=== PATIENT | male | born 1935 | race Caucasian/White ===

== ENCOUNTER 2022-03-19 10:09 | Emergency (ER) | payer MEDICARE ==
[~2022-03-19] VITALS: Ht 182.9 cm; Wt 68.0 kg
[2022-03-19 10:46] LABS: BASOPHILS ABSOLUTE AUTO 0.05 K/mm3 (0.00-0.23); BASOPHILS PERCENT AUTO 1 % (0-2); EOSINOPHILS ABSOLUTE AUTO 0.15 K/mm3 (0.00-0.68); EOSINOPHILS PERCENT AUTO 2 % (0-6); Hematocrit 45.7 % (37.0-53.0); Hemoglobin 14.4 g/dL (13.5-17.5); IMMATURE GRAN ABSOLUTE AUTO 0.02 K/mm3 (0.00-0.10); IMMATURE GRAN PERCENT AUTO 0 % (0-1); LYMPHOCYTES ABSOLUTE AUTO 1.76 K/mm3 (0.84-5.20); LYMPHOCYTES PERCENT AUTO 20 % (21-46); MONOCYTES ABSOLUTE AUTO 1.03 K/mm3 (0.16-1.47); MONOCYTES PERCENT AUTO 12 % (4-13); Mean Corpuscular HGB 27.1 pg (26.0-34.0); Mean Corpuscular HGB Conc 31.5 g/dL (31.5-36.5); Mean Corpuscular Volume 86 fL (80-100); NEUTROPHILS ABSOLUTE AUTO 5.84 K/mm3 (1.96-9.15); NEUTROPHILS PERCENT AUTO 66 % (41-73); Platelet Count 268 K/mm3 (150-400); RDW Coefficient Variation 13.8 % (11.7-14.2); RDW Standard Deviation 43.4 fL (35.1-46.3); Red Blood Cell Count 5.32 M/mm3 (4.30-5.90); White Blood Cell Count 8.85 K/mm3 (4.00-11.30)
[2022-03-19] MEDS ORDERED: DICL75ER PO (10:50)
[2022-03-19] MEDS ORDERED: SELEGILINE HCL (10:50)
[2022-03-19] MEDS ORDERED: ISOSORBIDE MONO30 MG PO (10:51)
[2022-03-19] MEDS ORDERED: GLYBURIDE-METF1 EAC1 PO (10:51)
[2022-03-19] MEDS ORDERED: CARBIDOPA-LEVO1 EA15 PO (10:51)
[2022-03-19] MEDS ORDERED: METOPROLOL SUCC25 MG PO (10:51)
[2022-03-19] MEDS ORDERED: ATORVASTATIN CA20 MG PO (10:52)
[2022-03-19 10:56] LABS: Alanine Aminotransfer (ALT/SGP 8 U/L (12-78); Albumin, Blood 3.9 g/dL (3.4-5.0); Albumin/Globulin Ratio 1.1 (0.8-1.8); Alk Phos 88 U/L (50-136); Anion Gap 7 mmol/L (6-16); Aspartate Aminotrans (AST/SGOT 20 U/L (12-37); Bilirubin, Total 0.6 mg/dL (0.1-1.0); Blood Urea Nitrogen 24 mg/dL (8-24); Bun/Creatinine Ratio 29.9 (12.0-20.0); CO2, Blood 32 mmol/L (21-32); Calcium, Blood 9.9 mg/dL (8.5-10.1); Chloride, Blood 97 mmol/L (98-108); Globulin, Blood 3.6 g/dL (2.2-4.0); Glomerular Filtration Rate >60 (60-); Glucose, Blood 219 mg/dL (70-99); Sodium, Blood 136 mmol/L (136-145); Total Protein, Blood 7.5 g/dL (6.4-8.2)
[2022-03-19 13:35] LABS: Source, Urine Clean Catch
[2022-03-19 13:52] LABS: Appearance, Urine Clear (Clear); Bilirubin, Urine Neg (Neg); Blood, Urine Neg (Neg); Color, Urine Yellow (P-Yellow); Glucose Qualitative, Urine Neg (Neg); Ketones, Urine 2+ (Neg); Leukocyte Esterase, Urine Neg (Neg); Nitrite, Urine Neg (Neg); Protein, Urine 1+ (Neg); Urobilinogen, Urine NORM (Normal); pH, Urine 6.5 (5.0-8.0)
[2022-03-19] MEDS ORDERED: Miralax17 GM PO (13:59)
[2022-03-19] MEDS ORDERED: ONDA4ODT SL (13:59)
== END 2022-03-19 14:13 | disposition home or self-care (01) ==
LOC: ER 10:09
PROVIDERS: Physician Assistant
DX: R11.2 Nausea with vomiting, unspecified (principal); R63.4 Abnormal weight loss; G20 Parkinson's disease; K59.00 Constipation, unspecified; Z90.49 Acquired absence of other specified parts of digestive tract; Z85.038 Personal history of other malignant neoplasm of large intestine; Z87.11 Personal history of peptic ulcer disease; Z79.899 Other long term (current) drug therapy
CPT/HCPCS: 36415; 71045; 74177; 80053; 83690; 84443; 84484; 85025; 93005; 93010; J7120; Q9967

== ENCOUNTER 2022-09-04 23:51 | Inpatient (IN) | payer MEDICARE ==
[~2022-09-04] VITALS: Ht 182.9 cm; Wt 67.9 kg
[~2022-09-04 23:51] MED LIST: ATORVASTATIN CA20 MG PO; CARBIDOPA-LEVO1 EA15 PO; CODACE30 PO; DICL75ER PO; GLYBURIDE-METF1 EAC1 PO; ISOSORBIDE MONO30 MG PO; METOPROLOL SUCC25 MG PO; Miralax17 GM PO; ONDA4ODT SL; SELEGILINE HCL
[2022-09-05 00:20] LABS: BASOPHILS ABSOLUTE AUTO 0.06 K/mm3 (0.00-0.23); BASOPHILS PERCENT AUTO 0 % (0-2); EOSINOPHILS ABSOLUTE AUTO 0.21 K/mm3 (0.00-0.68); EOSINOPHILS PERCENT AUTO 2 % (0-6); Hematocrit 40.3 % (37.0-53.0); Hemoglobin 13.1 g/dL (13.5-17.5); IMMATURE GRAN ABSOLUTE AUTO 0.05 K/mm3 (0.00-0.10); IMMATURE GRAN PERCENT AUTO 0 % (0-1); LYMPHOCYTES ABSOLUTE AUTO 1.29 K/mm3 (0.84-5.20); LYMPHOCYTES PERCENT AUTO 9 % (21-46); MONOCYTES ABSOLUTE AUTO 1.17 K/mm3 (0.16-1.47); MONOCYTES PERCENT AUTO 8 % (4-13); Mean Corpuscular HGB 28.1 pg (26.0-34.0); Mean Corpuscular HGB Conc 32.5 g/dL (31.5-36.5); Mean Corpuscular Volume 86 fL (80-100); Mean Platelet Volume 10.8 fL (9.1-12.4); NEUTROPHILS ABSOLUTE AUTO 11.29 K/mm3 (1.96-9.15); NEUTROPHILS PERCENT AUTO 80 % (41-73); Platelet Count 252 K/mm3 (150-400); RDW Coefficient Variation 13.9 % (11.7-14.2); RDW Standard Deviation 43.5 fL (35.1-46.3); Red Blood Cell Count 4.67 M/mm3 (4.30-5.90); White Blood Cell Count 14.07 K/mm3 (4.00-11.30)
[2022-09-05 00:39] LABS: Albumin, Blood 3.6 g/dL (3.4-5.0); Albumin/Globulin Ratio 1.1 (0.8-1.8); Bilirubin, Total 0.4 mg/dL (0.1-1.0); Bun/Creatinine Ratio 34.7 (12.0-20.0); Calcium, Blood 9.1 mg/dL (8.5-10.1); Creatinine, Blood 0.61 mg/dL (0.60-1.20); Globulin, Blood 3.2 g/dL (2.2-4.0); Potassium, Blood 4.2 mmol/L (3.5-5.5); Total Protein, Blood 6.8 g/dL (6.4-8.2)
[2022-09-05 02:12] LABS: Bilirubin, Urine Neg (Neg); Blood, Urine Neg (Neg); Glucose Qualitative, Urine Neg (Neg); Ketones, Urine 1+ (Neg); Leukocyte Esterase, Urine Neg (Neg); Nitrite, Urine Neg (Neg); Protein, Urine 1+ (Neg); Source, Urine Clean Catch; Urobilinogen, Urine NORM (Normal)
[2022-09-05 02:13] LABS: Appearance, Urine Clear (Clear); Color, Urine Yellow (P-Yellow)
--- NOTE | 2022-09-05 05:20 | NUR ---
0405: PT ARRIVED FROM ER. AOX4. NG TUBE ON L NOSTRILS. VSS. PT DENIES PAIN AT THIS TIME. PT ALSO DENIES N/V. PER ER NURSE, PT HAD 1600 MLS NG TUBE OUTPUT PRIOR TO TRANSFER. PT AMBULATES WITH FWW (BASELINE). TRANSFERS INDEPENDENTLY FROM GURNEY TO BED. NG TUBE ON LIS. DR. VILLELA CAME IN TO SEE PT IN ROOM. ATTENDS IN PLACE. USE URINAL. CALL LIGHT WITHIN REACH. WILL PROVIDE REPORT TO ONCOMING NURSE.
--- NOTE | 2022-09-05 18:37 | NUR ---
SHIFT SUMMARY PT A&OX4, VSS/RA, CBGS Q6 CNI. NPO, NGT LIS (100 MLS OUT THIS SHIFT). AMB W/FWW ([facility]ELINE FOR [facility]), AMB TO BRP AND IN HALLWAY, UP TO CHAIR, REPOSITIONS SELF WELL. URINAL AT BEDSIDE, PT CAN USE INDEPENDENTLY. IVF @ 100 MLS/HR. PAIN MANAGED WELL WITH DILAUDID 0.5 MG, X2. N&V-ZOFRAN GIVEN ONCE. WILL REPORT TO ONCOMING NOC RN.
[2022-09-06 04:55] LABS: BASOPHILS ABSOLUTE AUTO 0.04 K/mm3 (0.00-0.23); BASOPHILS PERCENT AUTO 0 % (0-2); EOSINOPHILS ABSOLUTE AUTO 0.16 K/mm3 (0.00-0.68); EOSINOPHILS PERCENT AUTO 2 % (0-6); Hematocrit 43.3 % (37.0-53.0); Hemoglobin 13.6 g/dL (13.5-17.5); IMMATURE GRAN ABSOLUTE AUTO 0.03 K/mm3 (0.00-0.10); IMMATURE GRAN PERCENT AUTO 0 % (0-1); LYMPHOCYTES ABSOLUTE AUTO 1.23 K/mm3 (0.84-5.20); LYMPHOCYTES PERCENT AUTO 12 % (21-46); MONOCYTES ABSOLUTE AUTO 1.22 K/mm3 (0.16-1.47); MONOCYTES PERCENT AUTO 12 % (4-13); Mean Corpuscular HGB 27.6 pg (26.0-34.0); Mean Corpuscular HGB Conc 31.4 g/dL (31.5-36.5); Mean Corpuscular Volume 88 fL (80-100); Mean Platelet Volume 10.5 fL (9.1-12.4); NEUTROPHILS ABSOLUTE AUTO 7.66 K/mm3 (1.96-9.15); NEUTROPHILS PERCENT AUTO 74 % (41-73); Platelet Count 240 K/mm3 (150-400); RDW Coefficient Variation 14.2 % (11.7-14.2); RDW Standard Deviation 45.6 fL (35.1-46.3); Red Blood Cell Count 4.93 M/mm3 (4.30-5.90); White Blood Cell Count 10.34 K/mm3 (4.00-11.30)
[2022-09-06 05:13] LABS: Bun/Creatinine Ratio 25.8 (12.0-20.0); Calcium, Blood 8.8 mg/dL (8.5-10.1); Creatinine, Blood 0.74 mg/dL (0.60-1.20); Potassium, Blood 4.1 mmol/L (3.5-5.5)
--- NOTE | 2022-09-06 06:40 | NUR ---
PT VSS T/O NIGHT. NGT PUT PUT APPX 200 ML BROWN DRNG. BT ACTIVE THIS AM, PT REP NO FLATUS YET, REP MORE PAINFUL R/T INC IN BOWEL ACTIVITY. PT DENIED N/V. PT VOIDING SMALL AMTS OF URINE. PT REMAINED NPO, IVF CONT PER ORDERS.
--- NOTE | 2022-09-06 08:39 | NUR ---
PATIENT TO IMAGING VIA W/C TO BEGIN SMALL BOWEL FOLLOW THROUGH. NG TUBE CLAMPED.
--- NOTE | 2022-09-06 09:12 | NUR ---
PATIENT RETURNED FROM IMAGING. NG TUBE REMAINS CLAMPED PER DR ORDERS.
--- NOTE | 2022-09-06 09:45 | NUR ---
PATIENT C/O INTERMITTENT BURNING/SHARP PAINS TO ABDOMEN, RATED 9/10. PATIENT DENIES N/V. MEDICATED PER EMAR. NOTIFIED MD OF NEW BURNING PAINS, NO NEW ORDERS.
--- NOTE | 2022-09-06 12:40 | NUR ---
PATIENT REPORTS SEVER NAUSEA, NO EMESIS AT THIS TIME. NG TUBE CONNECTED TO LIS PER DR RYDER ORDERS.
--- NOTE | 2022-09-06 17:54 | NUR ---
SHIFT SUMMARY PATIENT HAD SMALL BOWEL FOLLOW THROUGH STARTING THIS AM ABOUT 0800. NGTUBE WAS CLAMPED FOR PROCEDURE, PATIENT HAD SHARP BURNING PAIN INTERMITTENTLY AND THEN PATIENT BECAME VERY NAUSEATED ABOUT 1240, NG CONNECTED TO LIS AND VERY LARGE AMOUNT IMMEDIATELY CAME OUT, PATIENT FELT RELIEF QUICKLY FROM SUCTION. PATIENT FINISHED SMALL BOWEL FOLLOW THROUGH, CLAMPING NG EACH TIME PATIENT WENT FOR IMAGES. PATIENT REMAINS NPO, DENIES ANY FLATUS THIS SHIFT, NO BM, ALTHOUGH PATIENT REPORTS "STOMACH RUMBLING" OFTEN AND HYPERACTIVE BOWEL TONES AUSCULATED. PATIENT VOIDING W/O DIFFICULTY WITH URINAL. MEDICATED NEEDED PER EMAR. IV FLUIDS RUNNING. CALLS APPROPRIATLY, WILL REPORT TO ONCOMING RN.
--- NOTE | 2022-09-07 07:40 | NUR ---
PT VSS T/O NIGHT. NGT TO LIS, PUT OUT APPX 1000 ML LIGHT BROWN DRNG PT C/O BURNING ABD PAIN, DENIED N/V. PAIN MGD W/1MG IV DILAUDID. PT REP PASSING SMALL FLATUS X1. PT NPO, IVF CONT PER ORDERS. PLAN FOR FINAL SBFT IMAGE THIS AM.
--- NOTE | 2022-09-07 16:40 | NUR ---
SHIFT SUMMARY PATIENT MEDICATED X1 FOR PAIN. PATIENT DENIES NAUSEA AND SHORTNESS OF BREATH. PATIENT BT HYPOACTIVE. PATIENT NG TO LIS. PATIENT HAD 600ML OUTPUT THIS SHIFT. PATIENT REPORTS INTERMITTENT "SHOOTING" PAIN. PATIENT NPO. PATIENT TO POSSIBLY HAVE SURGERY TOMORROW MORNING, PER DR. TREVINO. PATIENT DAUGHTER VISITED TODAY. PATIENT IS A SBA. PATIENT IS PLEASANT AND COOPERATIVE WITH CARE.
--- NOTE | 2022-09-08 05:35 | NUR ---
PT VSS T/O NIGHT. PT CONT TO C/O CRAMPING ABD PAIN AND BURNING. ABDF REMAINS GUARDED, BT HYPO, PT REP NO FLATUS. PAIN MGD W/1 MG IV DILAUDID. NGT CONT TO LIS, HAD APPX 600ML BROWN DRNG. PT DID C/O NAUSEA X1, ZOFRAN GIVEN PER EMAR. PT REMAINS NPO, IVF CONT PER ORDERS. PLAN FOR SURGERY THIS AM.
[2022-09-08 05:47] LABS: BASOPHILS ABSOLUTE AUTO 0.03 K/mm3 (0.00-0.23); BASOPHILS PERCENT AUTO 1 % (0-2); EOSINOPHILS ABSOLUTE AUTO 0.12 K/mm3 (0.00-0.68); EOSINOPHILS PERCENT AUTO 2 % (0-6); Hematocrit 45.6 % (37.0-53.0); Hemoglobin 14.1 g/dL (13.5-17.5); IMMATURE GRAN ABSOLUTE AUTO 0.02 K/mm3 (0.00-0.10); IMMATURE GRAN PERCENT AUTO 0 % (0-1); LYMPHOCYTES ABSOLUTE AUTO 1.38 K/mm3 (0.84-5.20); LYMPHOCYTES PERCENT AUTO 21 % (21-46); MONOCYTES ABSOLUTE AUTO 1.05 K/mm3 (0.16-1.47); MONOCYTES PERCENT AUTO 16 % (4-13); Mean Corpuscular HGB 27.5 pg (26.0-34.0); Mean Corpuscular HGB Conc 30.9 g/dL (31.5-36.5); Mean Corpuscular Volume 89 fL (80-100); Mean Platelet Volume 10.8 fL (9.1-12.4); NEUTROPHILS ABSOLUTE AUTO 4.04 K/mm3 (1.96-9.15); NEUTROPHILS PERCENT AUTO 61 % (41-73); Platelet Count 269 K/mm3 (150-400); RDW Coefficient Variation 13.6 % (11.7-14.2); RDW Standard Deviation 44.8 fL (35.1-46.3); Red Blood Cell Count 5.13 M/mm3 (4.30-5.90); White Blood Cell Count 6.64 K/mm3 (4.00-11.30)
[2022-09-08 06:20] LABS: Albumin, Blood 3.1 g/dL (3.4-5.0); Albumin/Globulin Ratio 0.9 (0.8-1.8); Bilirubin, Total 0.8 mg/dL (0.1-1.0); Bun/Creatinine Ratio 42.9 (12.0-20.0); Calcium, Blood 9.2 mg/dL (8.5-10.1); Creatinine, Blood 0.61 mg/dL (0.60-1.20); Globulin, Blood 3.4 g/dL (2.2-4.0); Potassium, Blood 3.7 mmol/L (3.5-5.5); Total Protein, Blood 6.5 g/dL (6.4-8.2)
--- NOTE | 2022-09-08 06:38 | NUR ---
FAMILY IN ROOM FOR VISIT
--- NOTE | 2022-09-08 08:25 | NUR ---
Patient confirms NPO status and agrees with scheduled surgery. History, Chart, Medications and Allergies reviewed before start of procedure. Lungs clear T/O to Auscultation.
--- NOTE | 2022-09-08 08:27 | NUR ---
SURGERY PATIENT TAKEN TO SURGERY AT 0800. PATIENT IN GOWN, IV SALINE LOCKED, NG CLAMPED. FAMILY AT BEDSIDE, FOLLOWED PATIENT DOWN TO SURGERY. PATIENT TAKEN IN BED.
--- NOTE | 2022-09-08 09:39 | NUR ---
PATIENT TRANSFERED VIA BED TO DAY SURGERY AT 0807 FOR SURGERY. SURGERY POSTPONED BY DR TREVINO. PATIENT TRANSFERED BACK TO THEIR ROOM VIA BED AT 0938.
--- NOTE | 2022-09-08 10:15 | NUR ---
THE PATIENT WAS BROUGHT BACK TO DAYSURGERY FOR HIS PROCEDURE.
--- NOTE | 2022-09-08 11:26 | NUR ---
09/08/22 1126 Parris Johnson ATTEMPTED DIAGNOSTIC LAPAROSCOPY [id number] CASE WENT OPEN AT 1111 AND PROCEEDED
--- NOTE | 2022-09-08 18:21 | NUR ---
SHIFT SUMMARY PATIENT BACK FROM SURGERY AROUND 1730. PATIENT REPORTS PAIN, MEDICATED PER EMAR. PATIENT HAS CIRO DRAIN, EMPTIED AT 1800, 50ML OUTPUT. PATIENT HAS ILEANA DRESSING. DRESSING IS C/D/I. PATIENT VS WNL. PATIENT A&O X4. PATIENT VOMITTED IN ROOM, THICK BROWN EMESIS. NG ON LIS, OUTPUT IS BROWN. FAMILY AT BEDSIDE. PATIETN HAS AL[place], PATENT AND DRAINING TO GRAVITY. PATIENT IS PLEASANT AND COOPERATIVE WITH CARE.
--- NOTE | 2022-09-09 05:34 | NUR ---
SHIFT SUMMARY PT A&OX 3-4, PLEASANT AND COOPERATIVE. CAN BE CONFUSED AT TIMES, BUT EASY TO REORIENT. MEDICATED FOR PAIN TWICE WITH 1MG DILAUDID. MIDLINE ILEANA DRESSING HAD MINIMAL SHADOWING, GREEN LIGHT ON. ABD BINDER IN PLACE. CIRO DRAIN EMPTIED TWICE FOR A TOTAL OF 70ML. NG IN PLACE AND SET TO INTERMITTENT, THOUGH IT'S NOT DRAINING WELL. OUTPUT IS THICK/BROWN. ATTEMPTED TO IRRIGATE MULTIPLE TIMES TILL OUTPUT WAS THINNER CONSISTENCY, STILL HAVING FLOW ISSUES. WILL PASS THIS ON IN REPORT. ALCANTARA IN PLACE AND DRAINING TO GRAVITY. CALL LIGHT WITHIN REACH.
[2022-09-09 05:41] LABS: BASOPHILS ABSOLUTE AUTO 0.03 K/mm3 (0.00-0.23); BASOPHILS PERCENT AUTO 0 % (0-2); EOSINOPHILS PERCENT AUTO 0 % (0-6); Hematocrit 45.7 % (37.0-53.0); Hemoglobin 14.4 g/dL (13.5-17.5); IMMATURE GRAN ABSOLUTE AUTO 0.05 K/mm3 (0.00-0.10); IMMATURE GRAN PERCENT AUTO 1 % (0-1); LYMPHOCYTES ABSOLUTE AUTO 1.16 K/mm3 (0.84-5.20); LYMPHOCYTES PERCENT AUTO 11 % (21-46); MONOCYTES ABSOLUTE AUTO 1.69 K/mm3 (0.16-1.47); MONOCYTES PERCENT AUTO 16 % (4-13); Mean Corpuscular HGB 27.7 pg (26.0-34.0); Mean Corpuscular HGB Conc 31.5 g/dL (31.5-36.5); Mean Corpuscular Volume 88 fL (80-100); Mean Platelet Volume 10.6 fL (9.1-12.4); NEUTROPHILS PERCENT AUTO 73 % (41-73); Platelet Count 303 K/mm3 (150-400); RDW Coefficient Variation 13.9 % (11.7-14.2); RDW Standard Deviation 45.1 fL (35.1-46.3); White Blood Cell Count 10.83 K/mm3 (4.00-11.30)
[2022-09-09 06:20] LABS: Albumin, Blood 2.5 g/dL (3.4-5.0); Albumin/Globulin Ratio 0.8 (0.8-1.8); Bilirubin, Total 0.7 mg/dL (0.1-1.0); Bun/Creatinine Ratio 43.2 (12.0-20.0); Calcium, Blood 8.3 mg/dL (8.5-10.1); Creatinine, Blood 0.83 mg/dL (0.60-1.20); Potassium, Blood 3.8 mmol/L (3.5-5.5); Total Protein, Blood 5.5 g/dL (6.4-8.2)
--- NOTE | 2022-09-09 16:52 | NUR ---
SHIFT SUMMARY POD 1 EXP LAP W/ RAYMOND. MIDLINE ILEANA IN PLACE, LIGHT DRAINAGE NOTED CONSISTENTLY T/O SHIFT. MODERATE PAIN TO ABDOMEN, MEDICATED PER EMAR. PATIENT REMIANS NPO, NG TUBE IN PLACE TO LIS WITH MINIMAL OUTPUT THIS SHIFT. REPORTS NAUSEA INTERMITTENTLY, NO EMESIS. PATIENT WORKED WITH PT & OT TODAY AND DID FAIR, 1-2P TO CHAIR. DENIES FLATUS, NO BM. TPN STARTED TODAY. CALLS APPROPRIATELY, WILL REPORT TO ONCOMING RN.
[2022-09-10 05:01] LABS: BASOPHILS ABSOLUTE AUTO 0.04 K/mm3 (0.00-0.23); BASOPHILS PERCENT AUTO 0 % (0-2); EOSINOPHILS ABSOLUTE AUTO 0.14 K/mm3 (0.00-0.68); EOSINOPHILS PERCENT AUTO 1 % (0-6); Hematocrit 41.8 % (37.0-53.0); IMMATURE GRAN ABSOLUTE AUTO 0.05 K/mm3 (0.00-0.10); IMMATURE GRAN PERCENT AUTO 1 % (0-1); LYMPHOCYTES ABSOLUTE AUTO 1.52 K/mm3 (0.84-5.20); LYMPHOCYTES PERCENT AUTO 15 % (21-46); MONOCYTES ABSOLUTE AUTO 1.42 K/mm3 (0.16-1.47); MONOCYTES PERCENT AUTO 14 % (4-13); Mean Corpuscular HGB 27.6 pg (26.0-34.0); Mean Corpuscular HGB Conc 31.1 g/dL (31.5-36.5); Mean Corpuscular Volume 89 fL (80-100); Mean Platelet Volume 10.7 fL (9.1-12.4); NEUTROPHILS PERCENT AUTO 70 % (41-73); Platelet Count 269 K/mm3 (150-400); RDW Coefficient Variation 13.9 % (11.7-14.2); RDW Standard Deviation 44.7 fL (35.1-46.3); Red Blood Cell Count 4.71 M/mm3 (4.30-5.90); White Blood Cell Count 10.47 K/mm3 (4.00-11.30)
[2022-09-10 05:36] LABS: Alanine Aminotransfer (ALT/SGP 18 U/L (12-78); Albumin, Blood 2.3 g/dL (3.4-5.0); Albumin/Globulin Ratio 0.7 (0.8-1.8); Alk Phos 66 U/L (50-136); Anion Gap 5 mmol/L (6-16); Aspartate Aminotrans (AST/SGOT 16 U/L (12-37); Bilirubin, Total 0.4 mg/dL (0.1-1.0); Blood Urea Nitrogen 33 mg/dL (8-24); Bun/Creatinine Ratio 51.6 (12.0-20.0); CO2, Blood 32 mmol/L (21-32); Calcium, Blood 8.8 mg/dL (8.5-10.1); Chloride, Blood 107 mmol/L (98-108); Creatinine, Blood 0.64 mg/dL (0.60-1.20); Globulin, Blood 3.5 g/dL (2.2-4.0); Glomerular Filtration Rate 92 (60-); Glucose, Blood 307 mg/dL (70-99); Magnesium, Blood 2.2 mg/dL (1.6-2.4); Phosphorus, Blood 1.8 mg/dL (2.5-4.9); Potassium, Blood 3.5 mmol/L (3.5-5.5); Sodium, Blood 144 mmol/L (136-145); Total Protein, Blood 5.8 g/dL (6.4-8.2); Triglycerides 156 mg/dL (30-160)
--- NOTE | 2022-09-10 05:37 | NUR ---
SHIFT SUMMARY PT ALERT BUT CONFUSED AT TIMES. MEDICATING FOR PAIN PER EMAR. ILEANA DRESSING HAD LIGHT DRAINAGE, GREEN LIGHT ON. ABD BINDER IN PLACE. PT STILL NPO. NG TUBE IN PLACE AND SECURED. 1-2 ASSIST TO CHAIR. DENIES PASSING FLATUS, NO BM. ALCANTARA IN PLACE AND DRAINING TO GRAVITY, YELLOW/LITTLE DARK. CIRO DRAIN EMPTIED ONCE, 20ML SEROSANGUINEOUS. CALL LIGHT WITHIN REACH.
--- NOTE | 2022-09-10 10:59 | NUR ---
IMAGING IN ROOM AT ABOUT 1035, ABD XRAY COMPLETE
--- NOTE | 2022-09-10 17:53 | NUR ---
SUMMARY: PT IS POD2 EX LAP WITH LYSIS OF ADHESIONS. A/O, FRAIL, VSS. ML ILEANA DRESSING HAS SOME DRY BLOOD SPOTS, OTHERWISE WNL. CIRO DRAIN NOT EMPITIED TODAY, SMALL AMT SS FLUID IN COMPRESSED BULB. ALCANTARA DC'D TONIGHT, AWAITING VOID. PT DENIES PASSING GAS, BOWEL TONES ARE ABSENT TO HYPOACTIVE. PT HAS HAD INTERMITTANT NAUSEA TODAY AND 220ML OF GREEN OUTPUT FROM NGT. NGT APPEARS TO BE SUCTIONING WELL. PT WORKED WITH THERAPY AND SAT UP TO CHAIR X3, 1 ASSIST WITH FWW. PT ABLE TO MAKE NEEDS KNOWN, PAIN SEEMS TO BE WELL MANAGE WITH 1MG IV DILAUDID. PT FAMILY AT BEDSIDE THE MAJORITY OF TODAY. NO ACUTE SAFETY CONCERNS.
--- NOTE | 2022-09-10 19:58 | NUR ---
NG TUBE PULLED BACK 7CM OF NG TUBE AND RESECURED, PER DR. TREVINO'S ORDERS. FLUSHED LINE WITH 40ML, AND RETURNED TO SUCTION.
--- NOTE | 2022-09-11 05:56 | NUR ---
SHIFT SUMMARY PT A&OX 3-4, PLEASANT AND COOPERATIVE WITH CARE. BED ALARM ON. MEDICATING FOR PAIN PER EMAR. NPO STATUS STILL. NG TUBE IN PLACE AND SECURED, 650ML DURING SHIFT GREEN/CLEAR IN COLOR. MIDLINE ILEANA WITH JUST A FEW SPOTS OF DRIED BLOOD, GREEN LIGHT ON. ABD BINDER IN PLACE. LLQ CIRO DRAIN EMPTIED ONCE, 30ML SEROSANGUINEOUS. 1 ASSIST WITH FWW/GB. VOIDING USING BEDSIDE URINAL WITH ASSISTANCE, NO BM YET. CALLS APPROPRIATELY, CALL LIGHT WITHIN REACH.
[2022-09-11 06:12] LABS: BASOPHILS ABSOLUTE AUTO 0.04 K/mm3 (0.00-0.23); BASOPHILS PERCENT AUTO 0 % (0-2); EOSINOPHILS ABSOLUTE AUTO 0.32 K/mm3 (0.00-0.68); EOSINOPHILS PERCENT AUTO 3 % (0-6); Hematocrit 39.5 % (37.0-53.0); Hemoglobin 12.4 g/dL (13.5-17.5); IMMATURE GRAN ABSOLUTE AUTO 0.06 K/mm3 (0.00-0.10); IMMATURE GRAN PERCENT AUTO 1 % (0-1); LYMPHOCYTES ABSOLUTE AUTO 1.38 K/mm3 (0.84-5.20); LYMPHOCYTES PERCENT AUTO 15 % (21-46); MONOCYTES ABSOLUTE AUTO 0.93 K/mm3 (0.16-1.47); MONOCYTES PERCENT AUTO 10 % (4-13); Mean Corpuscular HGB 27.6 pg (26.0-34.0); Mean Corpuscular HGB Conc 31.4 g/dL (31.5-36.5); Mean Corpuscular Volume 88 fL (80-100); Mean Platelet Volume 10.7 fL (9.1-12.4); NEUTROPHILS ABSOLUTE AUTO 6.71 K/mm3 (1.96-9.15); NEUTROPHILS PERCENT AUTO 71 % (41-73); Platelet Count 241 K/mm3 (150-400); RDW Coefficient Variation 13.6 % (11.7-14.2); RDW Standard Deviation 43.9 fL (35.1-46.3); Red Blood Cell Count 4.49 M/mm3 (4.30-5.90); White Blood Cell Count 9.44 K/mm3 (4.00-11.30)
[2022-09-11 06:29] LABS: Bun/Creatinine Ratio 46.1 (12.0-20.0); Calcium, Blood 8.7 mg/dL (8.5-10.1); Creatinine, Blood 0.59 mg/dL (0.60-1.20); Magnesium, Blood 2.2 mg/dL (1.6-2.4); Phosphorus, Blood 2.7 mg/dL (2.5-4.9); Potassium, Blood 3.6 mmol/L (3.5-5.5)
--- NOTE | 2022-09-11 12:09 | NUR ---
RN NOTE MR THOMPSON IS ALERT AND ORIENTATED TO ALL QUESTIONS THIS MORNING. HIS SON VALENTINE SAID THAT HE IS MORE CLEAR AND ORIENTATED TODAY THAN YESTERDAY. HE SAT OUT IN THE CHAIR THIS MORNING WITH PT, TRANSFERED BACK TO BED WITH 1 NURSE, HE DID WELL WITH ASSISTANCE. HE HAD DIFFICULTY WITH IS, WORKING BETTER WITH FLUTTER VALVE WITH REMINDERS TO USE IT. PPN CONTINUES TO POWERGLIDE. BLOOD SUGARS HAVE BEEN ELEVATED. PT ON LOW SLIDING SCALE. VOICE MESSAGE LEFT FOR DR RUSH REGARDING BLOOD SUGARS. ABDOMINAL DRESSING WITH SPOTS OF OLD DRY BLOOD ONLY, NO FRESH DRAINAGE. CIRO DRAIN WITH S/S DRAINAGE, ILEANA WITH GREEN LIGHT. BINDER OVER ABDOMINAL DRESSING. PAIN MEDS EFFECTIVE THIS AM. HAS SOME INTERMITTANT NAUSEA WITH PAIN MEDS, NOT SUSTAINED. NG TUBE TO LIWS, PT NPO WITH ICE CHIPS. TOLERATING WELL. BOWEL SOUNDS VERY HYPOOACTIVE. PT DENIED FLATUS THIS AM. BED LOW, CALL LIGHT IN REACH.
--- NOTE | 2022-09-11 16:16 | NUR ---
SHIFT SUMMARY SEE 1209 RN NOTE. MR HUERTA AMBULATED IN TO THE BATHROOM WITH 1-2 PERSON ASSIST, WALKER AND GAIT BELT. SAT OUT IN THE CHAIR TWICE TODAY, NOW BACK IN BED. TURNED OFF OF HIS SACRUM, AREA RED WITH SMALL BREAKDOWN, MEPILEX CHANGED. DISCUSSED IMPORTANCE OF TURNS WITH PT AND HIS SON VALENTINE. GLARGINE GIVEN, NEXT ACCUCHECK AT 1800HRS. GIVEN DILAUDID 1MG IV FOR PAIN CONTROL THIS AFTERNOON, MR HUERTA LOOKS LIKE HE IS RESTING COMFORTABLY NOW. BED LOW, CALL LIGHT IN REACH, BED ALARM ON.
--- NOTE | 2022-09-12 04:21 | NUR ---
POD4 FOR AN EX LAP. MIDLINE ILEANA IS COMPRESSED, MILD SS DRAINAGE NOTED ON THE DRESSING. CIRO DRAIN REMAINS PATENT, DRAINING SS FLUID. DRESSING IS C/D/I. ABD BINDER IS IN PLACE. PT HAS BEEN NPO T/O THE NIGHT, NG TUBE IN PLACE. DRAINING THICK BILLIOUS FLUID. PTS PAIN HAS BEEN CONTROLLED WITH TORADOL AND DILAUDUD T/O THE NIGHT. PT VOIDING WITH C/O URGENCY. DENIES PASSING FLATTUS, NO BM'S. PT TRANSFERRED TO CHAIR WITH 1P AND FWW, WEAKNESS NOTED. PT HAS BEEN A/OX3-4 T/O THE NIGHT. PLAN FOR PT KEEP NG TUBE UNTIL BOWEL FUNCTION RETURNS, AWAITING FURTHER ORDERS. THE PATIENT IS CURRENTLY RESTING IN THE RECLINER IN NO DISTRESS. CALL LIGHT IN REACH
[2022-09-12 05:53] LABS: Bun/Creatinine Ratio 53.6 (12.0-20.0); Calcium, Blood 8.9 mg/dL (8.5-10.1); Creatinine, Blood 0.69 mg/dL (0.60-1.20); Magnesium, Blood 1.9 mg/dL (1.6-2.4); Phosphorus, Blood 4.7 mg/dL (2.5-4.9); Potassium, Blood 3.7 mmol/L (3.5-5.5)
--- NOTE | 2022-09-12 18:57 | NUR ---
SHIFT SUMMARY PT AxOx4. PLEASANT AND COOPERATIVE WITH CARE. PT IS POST OP DAY 4 FROM EXPLOR LAP AND ABDOMINAL ADHESION RELEASE. PT IS NPO WITH NG TUBE IN PLACE ON LOW INT SUCTION FOR SBO. PT REPORTED WAVES OF PAIN T/O THIS SHIFT. MEDICATED PER EMAR FOR PAIN. PT WALKED THE HALLS x2 PLUS WALKED TO BATHROOM x2 THIS SHIFT. PT REPORT FLATUS, BUT DID NOT HAVE A BM. PT HAD FAMILY IN ROOM THIS SHIFT, UPDATED ON PLAN OF CARE. PT HAS Q6 BG ORDERS. INSULIN ADMINISTERED PER SS ORDERS. NG OUTPUT TOTALS 150ML AND CIRO BULB OUTPUT TOTALS 80ML THIS SHIFT. PT IS CURRENTLY RESTING IN BED WITH CALL LIGHT IN REACH. VITALS REVIEWED. PT DENIES ANY FURTHER NEEDS AT THIS TIME.
--- NOTE | 2022-09-13 04:08 | NUR ---
POD 5 FOR AN EXPLAORATORY LAP. MIDLINE ILEANA REMAINS C/D/I, COMPRESSED. MINIMAL SHADOWING NOTED. CIRO DRAIN REMAINS PATENT, DRAINING SS FLUID. COMPRESSED. THE PATIENT SLEPT ON AND OFF T/O THE NIGHT. AMBULATED TO THE BATHROOM MULTIPLE TIMES TO ATTEMPT TO HAVE A BM. NO BM PASSED BUT PASSED FLATTUS T/O THE NIGHT. URINE OUTPUT CONTINUES TO BE LOW, ENCOURAGED TO AMBULATE. PLAN TO BLADDER SCAN NEEDED. THE PATIENT AMBULATED IN THE RIOS THIS AM WITHT THE CLINICAL SOCIAL WORKER, TOLLERATED THIS WELL. PAIN HAS BEEN MANAGED WITH TORADOL AND DILAUDID. NAUSEA HAS BEEN MANAGED WITH ZOFRAN. THE PATIENT HAS NOT HAS EMESIS. NG TUBE REMAINS IN PLACE, DRAINING DARK BILLIOUS FLUID. PT HAS REMAIED NPO T/O THE NIGHT EXCEPT FOR MINIMAL ICE CHIPS. PLAN OF CARE IS TO AWAIT BOWEL FUNCTIO TO RETURN AND POSSIBLY GO TO SNF. THE PATIENT IS CURRENTLY RESTING IN BED, IN NO DISTRESS. CALL LIGHT IN REACH
--- NOTE | 2022-09-13 06:30 | NUR ---
BOWEL FUNCTION POD 5 FOR A EX LAP, THE PT PASSED HIS FIRST STOOL THIS AM. IT WAS SMALL, SOFT AND LOOSE. GREEN COLOR. THE PT EXPERIENED RELIEF AFTER PASSING THIS.
[2022-09-13 10:20] LABS: BASOPHILS ABSOLUTE AUTO 0.07 K/mm3 (0.00-0.23); BASOPHILS PERCENT AUTO 1 % (0-2); EOSINOPHILS ABSOLUTE AUTO 0.41 K/mm3 (0.00-0.68); EOSINOPHILS PERCENT AUTO 5 % (0-6); Hematocrit 38.5 % (37.0-53.0); Hemoglobin 12.1 g/dL (13.5-17.5); IMMATURE GRAN PERCENT AUTO 1 % (0-1); LYMPHOCYTES ABSOLUTE AUTO 1.12 K/mm3 (0.84-5.20); LYMPHOCYTES PERCENT AUTO 12 % (21-46); MONOCYTES ABSOLUTE AUTO 0.92 K/mm3 (0.16-1.47); MONOCYTES PERCENT AUTO 10 % (4-13); Mean Corpuscular HGB 27.5 pg (26.0-34.0); Mean Corpuscular HGB Conc 31.4 g/dL (31.5-36.5); Mean Corpuscular Volume 88 fL (80-100); Mean Platelet Volume 11.1 fL (9.1-12.4); NEUTROPHILS ABSOLUTE AUTO 6.57 K/mm3 (1.96-9.15); NEUTROPHILS PERCENT AUTO 71 % (41-73); Platelet Count 253 K/mm3 (150-400); RDW Coefficient Variation 13.5 % (11.7-14.2); RDW Standard Deviation 43.3 fL (35.1-46.3); White Blood Cell Count 9.19 K/mm3 (4.00-11.30)
[2022-09-13 10:35] LABS: Albumin, Blood 2.1 g/dL (3.4-5.0); Albumin/Globulin Ratio 0.6 (0.8-1.8); Bilirubin, Total 0.5 mg/dL (0.1-1.0); Bun/Creatinine Ratio 52.8 (12.0-20.0); Calcium, Blood 8.4 mg/dL (8.5-10.1); Creatinine, Blood 0.76 mg/dL (0.60-1.20); Globulin, Blood 3.3 g/dL (2.2-4.0); Potassium, Blood 3.9 mmol/L (3.5-5.5); Total Protein, Blood 5.4 g/dL (6.4-8.2)
--- NOTE | 2022-09-13 18:33 | NUR ---
SHIFT SUMMARY PATIENT ALERT AND ORIENTED THROUGHOUT SHIFT. [place]. NG TUBE DC'D AT BEGINNING OF SHIFT. PATIENT TOLERATED WELL. 1-2 EPISODES OF NAUSEA THAT PASSED QUICKLY, NO VOMITING. BOWEL TONES PRESENT. MULTIPLE BOWEL MOVEMENTS. CIRO DRAIN TO LLQ DC'D. MIDLINE ILEANA C/D/I. NPO WITH SIPS AND CHIPS. PAIN CONTROLLED WITH PRN IV PAIN MEDS. SBA WITH FWW UP TO AMBULATE IN HALLS AND TO BATHROOM. MEPILEX TO COCCYX CHANGED THIS SHIFT. PLAN TO ADVANCE DIET TOMORROW IF NO NAUSEA AND NO VOMITING CONTINUES. PPN RUNNING THROUGH [place]. CHEM BG Q6 WITH LSS HUMALOG. SON ATTENTIVE AT BEDSIDE THROUGHOUT SHIFT.
--- NOTE | 2022-09-14 04:54 | NUR ---
SHIFT SUMMARY PATIENT IS POD 6 EX LAP TO OPEN, LYSIS OF ADHESIONS. PICCO DRAIN AND DRESSING IN PLACE, SCANT AMOUNT OF SHADOWING ON DRESSING. EX LAP SITES WITH GAUZE AND TEGADERM C/D/I. EMILIE DRAIN SITE WITH GAUZE AND TEGADERM C/D/I. PT MEDICATED FOR PAIN X2 THIS SHIFT, WITH GOOD RELIEF. MEDICATED FOR NAUSEA THIS AM, STATES "I HAVE HEART BURN AND USUALLY TAKE PEPCID". NO VOMIT NOTED. PATIENT HAVING STOOLS THIS SHIFT, AND VOIDING WELL.IV ON R FOREARM PATENT, POWERGLIDE INFUSING PPN. REPOSITIONS THROUGHOUT SHIFT. VSS. CALL LIGHT IN REACH ABLE TO USE AND LET NEEDS KNOWN.
[2022-09-14 05:58] LABS: BASOPHILS ABSOLUTE AUTO 0.06 K/mm3 (0.00-0.23); BASOPHILS PERCENT AUTO 1 % (0-2); EOSINOPHILS ABSOLUTE AUTO 0.39 K/mm3 (0.00-0.68); EOSINOPHILS PERCENT AUTO 4 % (0-6); Hematocrit 34.4 % (37.0-53.0); Hemoglobin 11.2 g/dL (13.5-17.5); IMMATURE GRAN ABSOLUTE AUTO 0.19 K/mm3 (0.00-0.10); IMMATURE GRAN PERCENT AUTO 2 % (0-1); LYMPHOCYTES ABSOLUTE AUTO 1.61 K/mm3 (0.84-5.20); LYMPHOCYTES PERCENT AUTO 17 % (21-46); MONOCYTES PERCENT AUTO 9 % (4-13); Mean Corpuscular HGB 28.1 pg (26.0-34.0); Mean Corpuscular HGB Conc 32.6 g/dL (31.5-36.5); Mean Corpuscular Volume 86 fL (80-100); Mean Platelet Volume 10.5 fL (9.1-12.4); NEUTROPHILS ABSOLUTE AUTO 6.53 K/mm3 (1.96-9.15); NEUTROPHILS PERCENT AUTO 68 % (41-73); Platelet Count 243 K/mm3 (150-400); RDW Coefficient Variation 13.5 % (11.7-14.2); RDW Standard Deviation 42.2 fL (35.1-46.3); Red Blood Cell Count 3.99 M/mm3 (4.30-5.90); White Blood Cell Count 9.68 K/mm3 (4.00-11.30)
[2022-09-14 06:17] LABS: Bun/Creatinine Ratio 50.3 (12.0-20.0); Calcium, Blood 8.3 mg/dL (8.5-10.1); Creatinine, Blood 0.7 mg/dL (0.60-1.20); Potassium, Blood 3.8 mmol/L (3.5-5.5)
--- NOTE | 2022-09-14 08:55 | NUR ---
OT WORKING W/PT.
--- NOTE | 2022-09-14 15:02 | NUR ---
dr mayo in to see pt.
[2022-09-14] MEDS ORDERED: ACET325 PO (15:12)
[2022-09-14] MEDS ORDERED: CODACE30 PO (15:13)
[2022-09-14] MEDS ORDERED: ALUM-MAG HYDRO360 M1 PO (15:14)
[2022-09-14] MEDS ORDERED: NITR.4SL SL (15:22)
[2022-09-14] MEDS ORDERED: PANT40 PO (15:23)
[2022-09-14] MEDS ORDERED: PRESERVISION A1 EAC1 PO (15:25)
[2022-09-14] MEDS ORDERED: SENN187 PO (15:26)
[2022-09-14] MEDS ORDERED: TAMS.4ER PO (15:27)
[2022-09-14] MEDS ORDERED: LOPE2C PO (15:30)
--- NOTE | 2022-09-14 17:23 | NUR ---
SUMMARY NO ACUTE CHANGES T/O SHIFT. PT HAD TWO FORMED BMS TODAY. ADVANCING TO FULL LIQUIDS FOR DINNER PER ORDERS. PT WORKED WITH THERAPY, WALKED IN RIOS AND SAT UP IN RECLINER. PT STARTED ON PO PAIN MEDS. ADMINISTERED 1 TAB NORCO PER ORDERS BUT PT DID NOT RECEIVE ADEQUATE RELIEF. ADMINISTERED 2ND TAB AND PT REPORTED PAIN TOLERABLE. RESTING IN BED AT THIS TIME. CALL LIGHT IN REACH.
--- NOTE | 2022-09-15 02:30 | NUR ---
PATIENT REPORTED NAUSEA AND VOMITING AT 0045, ABOUT 50 ML OF YELLOW EMESIS NOTED. HOSPITALIST CALLED AND ORDER FOR PHENERGAN IV GIVEN. PATIENT IS NOW RESTING COMFORTABLE 02 SATS ABOVE 94% 1L NC PLACED FOR COMFORT WHILE ASLEEP. CONTINUE TO MONITOR FOR CHANGES. BED ALARM ON.
--- NOTE | 2022-09-15 04:40 | NUR ---
SHIFT SUMMARY PATIENT AOX4 AT START OF SHIFT. STARTED FULL LIQUID DIET THIS EVENING, TOLERATED SMALL AMOUNTS. MEDICATED FOR PAIN WITH PO NORCO, PATIENT BECAME NAUSEATED ZOFRAN WAS GIVEN WITH NO RESULTS. ORDER FOR PHENERGAN IV OBTAINED. NAUSEA SUBSIDED HOWEVER PATIENT BECAME MILDLY CONFUSED SETTING OFF BED ALARM SEVERAL TIMES THROUGHOUT THE SHIFT. REDIRECTED WELL, REORIENTED AND CONFIRMED WITH US HE HAD SOME CONFUSION. PATIENT URINATING SEVERAL TIMES THROUGHOUT SHIFT, NO BMS THIS SHIFT. REPOSITIONED AND BEDBATH DONE. CALL LIGHT IS IN REACH. VSS. WILL REPORT TO DAY RN.
[2022-09-15 15:39] LABS: Source, Urine Clean Catch
[2022-09-15 15:48] LABS: Appearance, Urine Clear (Clear); Bilirubin, Urine Neg (Neg); Blood, Urine Neg (Neg); Color, Urine Yellow (P-Yellow); Glucose Qualitative, Urine Neg (Neg); Ketones, Urine Neg (Neg); Leukocyte Esterase, Urine Neg (Neg); Nitrite, Urine Neg (Neg); Protein, Urine Neg (Neg); Urobilinogen, Urine NORM (Normal)
[2022-09-15 16:04] LABS: BASOPHILS ABSOLUTE AUTO 0.11 K/mm3 (0.00-0.23); BASOPHILS PERCENT AUTO 1 % (0-2); EOSINOPHILS ABSOLUTE AUTO 0.27 K/mm3 (0.00-0.68); EOSINOPHILS PERCENT AUTO 2 % (0-6); Hematocrit 38.8 % (37.0-53.0); Hemoglobin 12.5 g/dL (13.5-17.5); IMMATURE GRAN ABSOLUTE AUTO 0.21 K/mm3 (0.00-0.10); IMMATURE GRAN PERCENT AUTO 2 % (0-1); LYMPHOCYTES ABSOLUTE AUTO 1.34 K/mm3 (0.84-5.20); LYMPHOCYTES PERCENT AUTO 12 % (21-46); MONOCYTES ABSOLUTE AUTO 1.04 K/mm3 (0.16-1.47); MONOCYTES PERCENT AUTO 9 % (4-13); Mean Corpuscular HGB 28.2 pg (26.0-34.0); Mean Corpuscular HGB Conc 32.2 g/dL (31.5-36.5); Mean Corpuscular Volume 87 fL (80-100); NEUTROPHILS ABSOLUTE AUTO 8.49 K/mm3 (1.96-9.15); NEUTROPHILS PERCENT AUTO 74 % (41-73); Platelet Count 256 K/mm3 (150-400); RDW Coefficient Variation 13.7 % (11.7-14.2); RDW Standard Deviation 43.6 fL (35.1-46.3); Red Blood Cell Count 4.44 M/mm3 (4.30-5.90); White Blood Cell Count 11.46 K/mm3 (4.00-11.30)
--- NOTE | 2022-09-15 17:05 | NUR ---
ILEANA DRESSING REMOVED PER DR RYDER ORDERS. MEDIPORE DRESSING PALCED. X3 LAP SITES/DRAIN SITE DRESSINGS CHANGED.
--- NOTE | 2022-09-15 18:04 | NUR ---
SHIFT SUMMARY POD 7 EXP LAP W/ RAYMOND. MIDLINE INCISION W/ MEDIPORE DRESSING, C/D/I. X3 LAP/DRAIN SITE TO LEFT SIDE OF ABDOMEN, C/D/I. MINIMAL PAIN THROUGHOUT SHIFT, MEDICATED PER EMAR. NOT TOLERATING PO INTAKE VERY WELL EXCEPT ICE CHIPS AND SIPS OF WATER. PATIENT HAD COPIUS AMOUNTS OF EMESIS THIS AM. MILD NAUSEA SINCE, MEDICATED X1. AMBULATING TO BATHROOM WELL WITH 1P ASSIST. USES CALL LIGHT BUT DOES NOT WAIT FOR STAFF AFTER USING, BED ALARM IN PLACE. WILL REPORT TO ONCOMING RN.
[2022-09-15 18:11] LABS: Albumin, Blood 2.2 g/dL (3.4-5.0); Albumin/Globulin Ratio 0.6 (0.8-1.8); Bilirubin, Total 0.3 mg/dL (0.1-1.0); Bun/Creatinine Ratio 41.5 (12.0-20.0); Calcium, Blood 8.6 mg/dL (8.5-10.1); Creatinine, Blood 0.63 mg/dL (0.60-1.20); Globulin, Blood 3.4 g/dL (2.2-4.0); Potassium, Blood 4.4 mmol/L (3.5-5.5); Total Protein, Blood 5.6 g/dL (6.4-8.2)
--- NOTE | 2022-09-16 04:16 | NUR ---
POD8 FOR A EX LAP WITH LYSIS OF ADHESIONS. MIDLINE INCISION DRESSING IS C/D/I, LAP SITES AND DRAIN SITES ARE C/D/I. VSS. PT REMAINED NPO T/O THE NIGHT DUE TO N/V. THE PT HAD MULTIPLE EPISODES OF SPITTING UP BILLIOUS FLUID. TREATED NAUSEA WITH ZOFRAN, THIS APPEARED TO HELP. THE PT DENIES PASSING FLATTUS OR STOOL TONIGHT. MEDICATED FOR PAIN WITH IV DILAUDID THE PT COULD NOT TOLLERATE PO INTAKE. THE PATIENT SLEPT ON AND OFF T/O THE NIGHT. NOTED THAT THE PTS EMESIS AND BREATH SMELLS FOUL AND STOOL LIKE. NO ACUTE EVENTS T/O THE NIGHT. PLAN OF CARE IS TO AWAIT PT TO TOLLERATE PO INTAKE. THE PATIENT IS CURRENTLY RESTING IN BED, IN NO DISTRESS, CALL LIGHT IN REACH
[2022-09-16 04:58] LABS: BASOPHILS ABSOLUTE AUTO 0.05 K/mm3 (0.00-0.23); BASOPHILS PERCENT AUTO 0 % (0-2); EOSINOPHILS ABSOLUTE AUTO 0.26 K/mm3 (0.00-0.68); EOSINOPHILS PERCENT AUTO 2 % (0-6); Hematocrit 35.9 % (37.0-53.0); Hemoglobin 11.7 g/dL (13.5-17.5); IMMATURE GRAN ABSOLUTE AUTO 0.22 K/mm3 (0.00-0.10); IMMATURE GRAN PERCENT AUTO 2 % (0-1); LYMPHOCYTES ABSOLUTE AUTO 1.26 K/mm3 (0.84-5.20); LYMPHOCYTES PERCENT AUTO 11 % (21-46); MONOCYTES ABSOLUTE AUTO 1.12 K/mm3 (0.16-1.47); MONOCYTES PERCENT AUTO 10 % (4-13); Mean Corpuscular HGB Conc 32.6 g/dL (31.5-36.5); Mean Corpuscular Volume 86 fL (80-100); Mean Platelet Volume 10.5 fL (9.1-12.4); NEUTROPHILS ABSOLUTE AUTO 8.31 K/mm3 (1.96-9.15); NEUTROPHILS PERCENT AUTO 74 % (41-73); Platelet Count 260 K/mm3 (150-400); RDW Coefficient Variation 13.6 % (11.7-14.2); RDW Standard Deviation 42.8 fL (35.1-46.3); Red Blood Cell Count 4.18 M/mm3 (4.30-5.90); White Blood Cell Count 11.22 K/mm3 (4.00-11.30)
[2022-09-16 05:15] LABS: Bun/Creatinine Ratio 34.4 (12.0-20.0); Calcium, Blood 8.7 mg/dL (8.5-10.1); Creatinine, Blood 0.67 mg/dL (0.60-1.20); Magnesium, Blood 1.9 mg/dL (1.6-2.4); Phosphorus, Blood 3.7 mg/dL (2.5-4.9); Potassium, Blood 4.5 mmol/L (3.5-5.5)
--- NOTE | 2022-09-16 12:32 | NUR ---
PATIENT GAVE VERBAL PERMISSION FOR JANNETH VILLASEÑOR TO BE INVOLVED IN CARE
--- NOTE | 2022-09-16 12:36 | NUR ---
POD 8 EXP LAP W/ RAYMOND. MODERATE PAIN & BAUSEA THROUGHOUT MORNING. MEDICATIONS PER EMAR. 1P ASSIT TO AMBULATE AND TO BATHROOM. NPO PER MD ORDERS. BED ALARM ON. REPORT GIVEN TO ION ABDULLAHI.
--- NOTE | 2022-09-16 14:11 | NUR ---
SHOWER OFFERED PATIENT OFFERED SHOWER WAS AGREEABLE AT FIRST, PREPPED EQUIPMENT NEEDED, PATIENT THEN CHANGED MIND AND STATED HE DIDNT WANT ANYTHING TO DO WITH US AND REFUSED SHOWER. FOLLOWED UP WITH RN.
--- NOTE | 2022-09-16 17:36 | NUR ---
NG TUBE PLACED PLACED NG TUBE, VERIFIED WITH XRAY ON PLACEMENT, PATIENT TOLERATED WELL
--- NOTE | 2022-09-16 17:58 | NUR ---
SHIFT SUMMARY TOOK OVER CARE OF PT AT APPROXIMATELY 1245 AFTER GETTING REPORT FROM PRIOR RN. PT SITTING IN HIS CHAIR WHEN FIRST OBSERVED, DID NOT APPEAR TO BE IN ANY DISTRESS AT THE TIME BUT DID REPORT FEELING SOME NAUSEA BUT DIDN'T WANT ANY MEDICATIONS FOR IT. PPN RUNNING IN IV PUMP ORDERED RATE, INTRODUCED MYSELF AND DISCUSSED THE PLAN FOR THE DAY WITH THE PT AND HIS SON. PT LATER VOMITTED PER SON REPORT AND ASKED FOR SOMETHING FOR IT AND PAIN WHICH WAS GIVEN, PT VOMITTED WITHIN 1 MINUTE OF GETTING ZOFRAN AND HIS SINEMET CHARTED. NG TUBE DISCUSSED WITH PT AND HIS SON WHICH WAS LATER PLACED AFTER ORDERED BY STUDENT RN UNDER DIRECT OBSERVATION BY THIS RN AND THEIR CLINICAL INSTRUCTOR WHIH WAS TOLERATED WELL. PT ABD DISTENDED AND FIRM AT TIME OF NG PLACEMENT, AFTER XR VERIFICATION LIS ATTACHED AND GOT 1000ML OUT IMMEDIATELY WITH PT REPORTING FEELING "A LITTLE BETTER". WILL CTM. CALL LIGHT IN REACH, WILL REPORT TO ONCOMING NOC RN.
--- NOTE | 2022-09-17 03:47 | NUR ---
POD9 FOR A EX LAP. MIDLINE DRESSING AND LAP SITES ARE C/D/I. VSS. THE PT DID NOT REQUIRE ANY MEDICATION FOR N/V, OR PAIN TONIGHT. NG TUBE REMAINS PATENT, YELLOW THIN BILLIOUS FLUID OUTPUT. REINFORCED NASAL TAPE ON THE NG TUBE. THE PATIENT STATED HE PASSED MINIMAL FLATTUS TONIGHT. MULTIPLE INCONTINENT VOIDS NOTED TONIGHT. LINEN FABIE REQUIRED. PT EDUCATED ON THE IMPORTANCE OF LINE MAINTENENCE AND BEING CAREFUL WITH THE NG AND IV LINE WHEN MOVING OR AMBULATING, THE PT GOT OOB MULTIPLE TIMES WITHOTU CALLING AND HAD THE LINES PULLED TAUGHT. NO ACUTE EVENTS T/O THE NIGHT. PLAN FOR PT TO KEEP THE NG UNTIL BOWEL FUNCTION RETURNS AND ORAL INTAKE IS TOLLERATED. THE PATIENT IS CURRENTLY SLEEPING, IN NO DISTRESS. CALL LIGHT IN REACH, BED ALARM ON FOR SAFETY.
[2022-09-17 06:46] LABS: Anion Gap 8 mmol/L (6-16); Blood Urea Nitrogen 22 mg/dL (8-24); Bun/Creatinine Ratio 32.5 (12.0-20.0); CO2, Blood 32 mmol/L (21-32); Chloride, Blood 95 mmol/L (98-108); Creatinine, Blood 0.68 mg/dL (0.60-1.20); Glomerular Filtration Rate 91 (60-); Glucose, Blood 207 mg/dL (70-99); Magnesium, Blood 2.1 mg/dL (1.6-2.4); Potassium, Blood 4.1 mmol/L (3.5-5.5); Sodium, Blood 135 mmol/L (136-145); Triglycerides 134 mg/dL (30-160)
--- NOTE | 2022-09-17 16:21 | NUR ---
BOWEL FUNCTION: PT UP TO BATHROOM TO PASS FLATUS, NO BM. ATTENDS CHANGED NEEDED. PT AMBULATED APPROXIMATELY 20 FEET IN HALLWAY WITH 1 ASSIST AND WALKER. PT BACK TO BED AND REPOSITIONED TO LEFT SIDE.
--- NOTE | 2022-09-17 17:46 | NUR ---
PT HAS BEEN STABLE THIS SHIFT. PT ABLE TO SIT IN CHAIR X2 AND AMBULATE X2 WITH 1 ASSIST AND WALKER. PT HAS SHEARING TO COCCYX ARE WITH MEPILEX CHANGE THIS AFTERNOON AND PICTURE TO CHART. TURNING IN BED TOLERATED. PT REMAINS NPO. CHANGED TO TPN THIS EVENING AFTER PICC LINE PLACEMENT. BLOOD SUGARS RUNNING IN THE 200 RANGE. NGT TO LIS WITH 900CC OF BROWN/YELLOW DRAINAGE. SURGICAL DRESSINGS CHANGED THIS AFTERNOON. PT HAS BEEN VOIDING WELL WITH URINAL. PULL UP ON FOR OCCASIONAL INCONTINENCE. PT PASSED FLATUS X2 THIS AFTERNOON. DENIES NAUSEA. PT HAS DENIED NEED FOR PAIN MEDICATION. LABS AND WEIGHT TO BE REPEATED IN AM. PT CALLS APPROPRIATELY THIS SHIFT. BED ALARM ON WHEN FAMILY NOT PRESENT.
--- NOTE | 2022-09-18 04:00 | NUR ---
SHIFT SUMMARY PT HAS RESTED OFF AND ON T/O THE SHIFT. PT MEDICATED FOR PAIN PER EMAR. HE HAS BEEN UP AND AMBULATING IN THE HALLS. CPN INFUSING. NG TUBE IN PLACE PATENT WITH GREEN DISCHARGE. PT A/OX4. BG IN THE 300'S THIS SHIFT, COVERAGE PER ORDERS. DRESSING INTACT TO ABD C/D. NO ACUTE CHANGES OVERNIGHT. BED IN LOWEST POSITION, CALL LIGHT WITHIN REACH.
[2022-09-18 05:10] LABS: Bun/Creatinine Ratio 39.3 (12.0-20.0); Creatinine, Blood 0.71 mg/dL (0.60-1.20); Magnesium, Blood 2.2 mg/dL (1.6-2.4); Phosphorus, Blood 3.4 mg/dL (2.5-4.9); Potassium, Blood 3.7 mmol/L (3.5-5.5)
--- NOTE | 2022-09-18 08:28 | NUR ---
PATIENT WORKED W/THERAPY AND DR MOORE IN.
--- NOTE | 2022-09-18 13:35 | NUR ---
CLAMPED NG SO PT MAY AMBULATE TO RESTROOM AND SCHEDULED PO MED CAN BE ADMINISTERED.
--- NOTE | 2022-09-18 14:51 | NUR ---
AMBULATED IN RIOS. NOW SITTING IN RECLINER W/NG TO LIS.
--- NOTE | 2022-09-18 17:03 | NUR ---
SUMMARY NO ACUTE CHANGES T/O SHIFT. PT'S NG TO LIS, PUTTING OUT DARK GREEN LIQUID. PT AMBULATED WORKED WITH THERAPY AND LATER AMBULATED IN RIOS W/RN AND SON. NOW SITTING UP IN RECLINER W/TAB ALARM IN PLACE. HAD ONE EPISODE OF A "BOLT" OF PAIN IN ABDOMEN THAT WOKE PT FROM SLEEP BUT PASSED AND PT DENIED NEED FOR PAIN MEDICATION. COVERED CBG PER ORDERS. CPN INFUSING TO PICC IN LUE PER ORDERS. FAMILY WAS AT BEDSIDE MOST OF DAY, HAVE LEFT FOR EVENING. CALL LIGHT WITHIN PATIENT'S REACH.
[2022-09-19 04:46] LABS: Bun/Creatinine Ratio 45.4 (12.0-20.0); Calcium, Blood 8.2 mg/dL (8.5-10.1); Creatinine, Blood 0.64 mg/dL (0.60-1.20); Magnesium, Blood 1.9 mg/dL (1.6-2.4); Phosphorus, Blood 2.9 mg/dL (2.5-4.9); Potassium, Blood 3.7 mmol/L (3.5-5.5)
--- NOTE | 2022-09-19 05:29 | NUR ---
SHIFT SUMMARY PT A&OX4, PLEASANT AND COOPERATIVE. MEDICATED ONCE FOR R KNEE PAIN. NO ACUTE CHANGES, VSS. NG TO LIS, OUTPUTTING BROWN/CLEAR. PT IN ATTENDS FOR OCCASIONAL INCONTINENCE, BEDSIDE URINAL TO VOID OTHERWISE. PT STATED PASSING A LITTLE FLATUS. DRESSING ON COCCYX CHANGED, PHOTO TAKEN AND PLACED IN CHART. CALLS APPROPRIATELY, CALL LIGHT WITHIN REACH.
--- NOTE | 2022-09-19 09:27 | NUR ---
dr hameed in to see pt.
--- NOTE | 2022-09-19 12:27 | NUR ---
KEEPING NG CLAMPED FOR FOUR HOURS PER DR MOORE'S VERBAL INSTRUCTION.
--- NOTE | 2022-09-19 17:57 | NUR ---
SUMMARY PT RESTING IN BED AT THIS TIME. HAD MEDIUM FORMED BM, RECEIVED FLEET ENEMA PER ORDERS AND HAD ANOTHER MEDIUM FORMED BM. HAS DENIED PAIN T/O SHIFT. CLAMPED NG FOR 4+ HOURS; WHEN UNCLAMPED HAD 100 ML OUTPUT. NOW ON LIS PER ORDERS. PT AMBULATED WITH NURSE STAFF INDUSTRIAL AND TO RESTROOM THIS SHIFT. CALL LIGHT IN REACH.
[2022-09-20 04:36] LABS: Bun/Creatinine Ratio 41.4 (12.0-20.0); Creatinine, Blood 0.7 mg/dL (0.60-1.20); Magnesium, Blood 1.6 mg/dL (1.6-2.4); Phosphorus, Blood 3.3 mg/dL (2.5-4.9); Potassium, Blood 3.8 mmol/L (3.5-5.5)
--- NOTE | 2022-09-20 05:30 | NUR ---
SHIFT SUMMARY PT ORIENTED AND COOPERATIVE WITH CARE. PT DID NOT NEED PAIN COVERAGE THIS SHIFT. NPO WITH NG TUBE SET TO LIS AND DRAINING GREEN/CLEAR. VOIDING USING BEDSIDE URINAL WITH ASSISTANCE, HAD ONE BROWN/PASTY BM IN ATTENDS. PT DID ALERT STAFF BUT WE WEREN'T ABLE TO TRANSFER TO THE [facility] QUICK ENOUGH. HAD A QUICK WALK DOWN THE HALLWAY WITH FWW/GB. MIDLINE DRESSING/BAND-AIDS C/D/I. CALLS APPROPRIATELY, CALL LIGHT WITHIN REACH.
--- NOTE | 2022-09-20 18:13 | NUR ---
SHIFT SUMMARY PT WORKED w/ THERAPY. UP TO CHIAR FOR MOST OF SHIFT. NGT TUBE CLAMPED FOR 30 MINS AFTER EACH PO MED GIVEN. PT TOLERATED THIS WELL w/ NO N/V OR ABD BLOAT FEELING. AMBULATED IN HALLWAY. NO BM THIS SHIFT.
[2022-09-21 06:05] LABS: BASOPHILS ABSOLUTE AUTO 0.08 K/mm3 (0.00-0.23); BASOPHILS PERCENT AUTO 1 % (0-2); EOSINOPHILS ABSOLUTE AUTO 0.28 K/mm3 (0.00-0.68); EOSINOPHILS PERCENT AUTO 2 % (0-6); Hematocrit 37.5 % (37.0-53.0); Hemoglobin 12.2 g/dL (13.5-17.5); IMMATURE GRAN PERCENT AUTO 1 % (0-1); LYMPHOCYTES ABSOLUTE AUTO 1.52 K/mm3 (0.84-5.20); LYMPHOCYTES PERCENT AUTO 9 % (21-46); MONOCYTES ABSOLUTE AUTO 1.57 K/mm3 (0.16-1.47); MONOCYTES PERCENT AUTO 9 % (4-13); Mean Corpuscular HGB 27.4 pg (26.0-34.0); Mean Corpuscular HGB Conc 32.5 g/dL (31.5-36.5); Mean Corpuscular Volume 84 fL (80-100); Mean Platelet Volume 10.9 fL (9.1-12.4); NEUTROPHILS PERCENT AUTO 78 % (41-73); Platelet Count 307 K/mm3 (150-400); RDW Coefficient Variation 13.6 % (11.7-14.2); RDW Standard Deviation 42.2 fL (35.1-46.3); Red Blood Cell Count 4.45 M/mm3 (4.30-5.90); White Blood Cell Count 16.95 K/mm3 (4.00-11.30)
[2022-09-21 06:23] LABS: Albumin, Blood 2.3 g/dL (3.4-5.0); Anion Gap 8 mmol/L (6-16); Blood Urea Nitrogen 28 mg/dL (8-24); Bun/Creatinine Ratio 42.2 (12.0-20.0); CO2, Blood 29 mmol/L (21-32); Calcium, Blood 8.4 mg/dL (8.5-10.1); Chloride, Blood 97 mmol/L (98-108); Creatinine, Blood 0.66 mg/dL (0.60-1.20); Glomerular Filtration Rate 91 (60-); Glucose, Blood 199 mg/dL (70-99); Phosphorus, Blood 4.3 mg/dL (2.5-4.9); Potassium, Blood 3.6 mmol/L (3.5-5.5); Sodium, Blood 134 mmol/L (136-145)
--- NOTE | 2022-09-21 06:23 | NUR ---
SHIFT SUMMARY PT ORIENTED AND COOPERATIVE WITH CARE. NO ACUTE CHANGES VSS. MEDICATED FOR PAIN ONCE FOR L SHOULDER/BACK PAIN. REPOSITIONED TO CHAIR, PT REPORTS BETTER COMFORT. NPO, NG TUBE SECURE AND SET TO LIS, OUTPUTTING GREEN/BROWN. 1 ASSIST WITH FWW. NO BM THIS SHIFT. CALLS APPROPRIATELY, CALL LIGHT WITHIN REACH.
--- NOTE | 2022-09-21 11:55 | NUR ---
AFTER 4 HRS w/ NGT CLAMPED, HOOKED UP TO SUCTION & RECEIVED 125 mls RETURN.
--- NOTE | 2022-09-21 18:15 | NUR ---
SHIFT SUMMARY NGT CLAMPED FOR 4 HRS x 2. NOW TO LIS. DENIES N/V OR ABD BLOAT. CT SCAN COMPLETED. WORKED w/ OT. UP TO CHAIR. NO BM OR GAS.
--- NOTE | 2022-09-22 05:03 | NUR ---
POD14 FOR EX LAP WITH LYSIS OF ADHESIONS. MIDLINE INCISION IS C/D/I, OPEN TO AIR. BANDAIDS OVER LAP SITES AND OLD CIRO SITE. ALSO C/D/I. VSS, TACHYCARDIA NOTED PER TREND. PT REMAINS ASYMPTOMATIC. THE PATIENT HAS PASSED FLATTUS THIS MORNING, NO BM'S NOTED. PT REPORTS RELIEF WITH PASSSING GAS. NAUSEA TX WITH ZOFRAN ONCE. NO EMESIS NOTED. NG TUBE IN PLACE, PATENT, DRAINING GREEN BILLIOUS FLUID. PT TOLERATED HAVING NG TUE CLAMPED FOR EVENING MEDS. PT VOIDING T/O THE NIGHT WITH SOME URGENCY AND INCONTINENCE. SLEPT ON AND OFF DUE TO PAIN, MEDICATED WITH PRN MEDS AND USED HEAT THERAPY T/O THE NIGHT. PLAM FOR PT TO CONTINUE TO WORK WITH THERAPY AND AWAIT RETURN OF BOWEL FUNCTION. THE PATIENT IS CURRENTLY SLEEPING IN THE RECLINER, CALL LIGHT IN REACH.
[2022-09-22 05:21] LABS: BASOPHILS ABSOLUTE AUTO 0.08 K/mm3 (0.00-0.23); BASOPHILS PERCENT AUTO 1 % (0-2); EOSINOPHILS ABSOLUTE AUTO 0.27 K/mm3 (0.00-0.68); EOSINOPHILS PERCENT AUTO 2 % (0-6); Hemoglobin 11.9 g/dL (13.5-17.5); IMMATURE GRAN ABSOLUTE AUTO 0.17 K/mm3 (0.00-0.10); IMMATURE GRAN PERCENT AUTO 1 % (0-1); LYMPHOCYTES ABSOLUTE AUTO 1.19 K/mm3 (0.84-5.20); LYMPHOCYTES PERCENT AUTO 7 % (21-46); MONOCYTES ABSOLUTE AUTO 1.49 K/mm3 (0.16-1.47); MONOCYTES PERCENT AUTO 9 % (4-13); Mean Corpuscular HGB 27.2 pg (26.0-34.0); Mean Corpuscular HGB Conc 32.2 g/dL (31.5-36.5); Mean Corpuscular Volume 85 fL (80-100); Mean Platelet Volume 10.8 fL (9.1-12.4); NEUTROPHILS ABSOLUTE AUTO 13.78 K/mm3 (1.96-9.15); NEUTROPHILS PERCENT AUTO 81 % (41-73); Platelet Count 300 K/mm3 (150-400); RDW Coefficient Variation 13.4 % (11.7-14.2); RDW Standard Deviation 41.9 fL (35.1-46.3); Red Blood Cell Count 4.38 M/mm3 (4.30-5.90); White Blood Cell Count 16.98 K/mm3 (4.00-11.30)
[2022-09-22 05:28] LABS: Alanine Aminotransfer (ALT/SGP 7 U/L (12-78); Albumin, Blood 2.1 g/dL (3.4-5.0); Albumin/Globulin Ratio 0.5 (0.8-1.8); Alk Phos 94 U/L (50-136); Anion Gap 7 mmol/L (6-16); Aspartate Aminotrans (AST/SGOT 14 U/L (12-37); Bilirubin, Total 0.4 mg/dL (0.1-1.0); Blood Urea Nitrogen 26 mg/dL (8-24); Bun/Creatinine Ratio 39.9 (12.0-20.0); CO2, Blood 31 mmol/L (21-32); Calcium, Blood 8.5 mg/dL (8.5-10.1); Chloride, Blood 97 mmol/L (98-108); Creatinine, Blood 0.65 mg/dL (0.60-1.20); Globulin, Blood 4.4 g/dL (2.2-4.0); Glomerular Filtration Rate 92 (60-); Glucose, Blood 120 mg/dL (70-99); Magnesium, Blood 1.9 mg/dL (1.6-2.4); Phosphorus, Blood 3.7 mg/dL (2.5-4.9); Potassium, Blood 3.4 mmol/L (3.5-5.5); Sodium, Blood 135 mmol/L (136-145); Total Protein, Blood 6.5 g/dL (6.4-8.2); Triglycerides 91 mg/dL (30-160)
--- NOTE | 2022-09-22 11:24 | NUR ---
NG TUBE REMOVED @ 1000, REMOVED ERNESTINA AND PUT STERI STRIPS TO MIDLINE INCISION. PATIENT TOLERATED SIPS OF WATER.
--- NOTE | 2022-09-22 16:20 | NUR ---
SHIFT SUMMARY NO ACUTE EVENTS THIS SHIFT. TOLERATING PO CL SIPS AND CHIPS. UP TO BSC AND CHAIR 1 ASSIST, FWW GB. ERNESTINA AND NG TUBE REMOVED TODAY. PATIENT REPORTS PASSING GAS, NO BM AT THIS TIME. SUPPOSITORY GIVEN. DENIES N/V. VSS. CALL LIGHT IN REACH. DAUGHTER AT BEDSIDE
[2022-09-23 05:48] LABS: BASOPHILS PERCENT AUTO 1 % (0-2); EOSINOPHILS ABSOLUTE AUTO 0.35 K/mm3 (0.00-0.68); EOSINOPHILS PERCENT AUTO 3 % (0-6); Hematocrit 32.4 % (37.0-53.0); Hemoglobin 10.5 g/dL (13.5-17.5); IMMATURE GRAN ABSOLUTE AUTO 0.14 K/mm3 (0.00-0.10); IMMATURE GRAN PERCENT AUTO 1 % (0-1); LYMPHOCYTES ABSOLUTE AUTO 1.59 K/mm3 (0.84-5.20); LYMPHOCYTES PERCENT AUTO 13 % (21-46); MONOCYTES ABSOLUTE AUTO 1.06 K/mm3 (0.16-1.47); MONOCYTES PERCENT AUTO 9 % (4-13); Mean Corpuscular HGB 27.2 pg (26.0-34.0); Mean Corpuscular HGB Conc 32.4 g/dL (31.5-36.5); Mean Corpuscular Volume 84 fL (80-100); Mean Platelet Volume 11.1 fL (9.1-12.4); NEUTROPHILS ABSOLUTE AUTO 9.03 K/mm3 (1.96-9.15); NEUTROPHILS PERCENT AUTO 74 % (41-73); Platelet Count 260 K/mm3 (150-400); RDW Coefficient Variation 13.7 % (11.7-14.2); RDW Standard Deviation 42.4 fL (35.1-46.3); Red Blood Cell Count 3.86 M/mm3 (4.30-5.90); White Blood Cell Count 12.27 K/mm3 (4.00-11.30)
[2022-09-23 06:08] LABS: Magnesium, Blood 2.1 mg/dL (1.6-2.4)
[2022-09-23 06:09] LABS: Albumin, Blood 1.8 g/dL (3.4-5.0); Anion Gap 5 mmol/L (6-16); Blood Urea Nitrogen 25 mg/dL (8-24); Bun/Creatinine Ratio 40.4 (12.0-20.0); CO2, Blood 31 mmol/L (21-32); Calcium, Blood 8.2 mg/dL (8.5-10.1); Chloride, Blood 99 mmol/L (98-108); Creatinine, Blood 0.62 mg/dL (0.60-1.20); Glomerular Filtration Rate 93 (60-); Glucose, Blood 111 mg/dL (70-99); Phosphorus, Blood 3.6 mg/dL (2.5-4.9); Potassium, Blood 3.6 mmol/L (3.5-5.5); Sodium, Blood 135 mmol/L (136-145)
--- NOTE | 2022-09-23 08:07 | NUR ---
SUMMARY NO ACUTE CHANGES. PT RESTED ON AND OFF TONIGHT.DAY RN AGREES TO ASK DR ABOUT POSSIBLE CXR -SEE CT RESULT AND WBC ELEVATION.URINE SAMPLE WAS SENT THIS SHIFT PER CLIENT TECHNICAL PROFESSIONAL TO LAB,WHICH LAB CALLED LATER WITH A RECIEVE TIME WHICH WOULD INVALIDATE THE SAMPLE FOR TESTING. WILL NEED TO OBTAIN ANOTHER U/A. WILL CALL TO CONFIRM THEIR RECEIPT OF SAMPLE.
[2022-09-23 08:56] LABS: Appearance, Urine Clear (Clear); Bilirubin, Urine Neg (Neg); Blood, Urine Neg (Neg); Color, Urine Yellow (P-Yellow); Glucose Qualitative, Urine Neg (Neg); Ketones, Urine Neg (Neg); Leukocyte Esterase, Urine Neg (Neg); Nitrite, Urine Neg (Neg); Protein, Urine Neg (Neg); Urobilinogen, Urine NORM (Normal)
--- NOTE | 2022-09-23 14:20 | NUR ---
PT TO TRANSFER TO 326, REPORT CALLED TO KAYY SILVER RN.
--- NOTE | 2022-09-23 15:23 | NUR ---
PT ARRIVED TO THE MEDICAL FLOOR VIA WHEELCHAIR A/OX3, PLEASANT AND COOPERATIVE. PT UP IN THE RECLINER AT THE BEDSIDE. PT ORIENTED TO THE ROOM LAYOUT AND CALL SYSTEM. CALL LIGHT IN REACH. PT APPEARS TO BE BREATHING EASILY ON RA AT THIS TIME. WILL CONTINUE TO MONITOR AND ASSESS FOR CHANGES
--- NOTE | 2022-09-23 19:13 | NUR ---
PT IS A/OX4, PLEASANT AND COOPERATIVE, PT WAS UP IN THE CHAIR FOR MOST OF THE DAY. THE PT WAS UP X 2 WITH THIS RN TO [facility], HOWEVER, WAS ONLY ABLE TO PASS GAS AND URINATE. THE PT DENIED HAVEING ANY PAIN OR NAUSEA SO FAR THIS SHIFT. PT WAS ABLE TO TOLERATE SOME SIPS AND BITES OF THE ITEMS ON THIS DINNER TRY. THE PT SAID HE DIDN'T WANT TO EAT MORE THAN THAT JUST YET.PT IS NOW RESTING IN BED. CALL LIGHT IN REACH. REPORT GIVEN TO ONCOMMING RN
--- NOTE | 2022-09-24 05:44 | NUR ---
Shift Summary Midline incision C/D/I. Pt attempted to have a bowel movement tonight but was unable, took scheduled milk of magnesia before bed. AOx4 but slow to respond. Pt up to the commode with 1 assist + fww + gb. Pt was able to swallow pills whole with water one at a time despite having a couple large pills. Tremors present which is baseline for pt r/t Parkinsons. No acute events, VSS, pleasant and cooperative with care.
--- NOTE | 2022-09-24 05:58 | NUR ---
Shift Summary Midline incision is C/D/I. Pt remains on clear sips only d/t recent abdominal lap surgery. Up to commode with FWW and 1 person SBA. Pt running TPN at 94. AOx4. Pt slept well t/o the night. Pt took 1st dose of milk of magnesia tonight and tolerated it well. Had a BM tonight. VSS, no acute events, pleasant and cooperative with care.
--- NOTE | 2022-09-24 17:44 | NUR ---
SHIFT SUMMARY NO ACUTE CHANGES DURING SHIFT. PT ALERT AND ORIENTD, CALLS APPROPRIATELY. PT REMAINS ON CLEARS, MINIMAL INTAKE, TPN INFUSING AT 96ML/HR. PT X 1 ASSIST, AMBULATED DOWN HALLWAY WITH STAFF MULTIPLE TIMES TODAY DURING SHIFT. PT PENDING FACILITY PLACEMENT. WILL CONTINUE TO MONITOR. CALL LIGHT WITHIN REACH.
--- NOTE | 2022-09-25 03:56 | NUR ---
ALERT AND ORIENTED. VSS. DENIES PAIN. CALLS APPROPRIATELY. NEEDS ASSISTANCE WITH URINAL AT BEDSIDE. ON TPN. BLOOD GLUCOSE CHECK Q6H WITH COVERAGE. BED ALARM ON.
[2022-09-25 04:55] LABS: BASOPHILS ABSOLUTE AUTO 0.08 K/mm3 (0.00-0.23); BASOPHILS PERCENT AUTO 1 % (0-2); EOSINOPHILS ABSOLUTE AUTO 0.21 K/mm3 (0.00-0.68); EOSINOPHILS PERCENT AUTO 3 % (0-6); Hemoglobin 10.6 g/dL (13.5-17.5); IMMATURE GRAN ABSOLUTE AUTO 0.11 K/mm3 (0.00-0.10); IMMATURE GRAN PERCENT AUTO 2 % (0-1); LYMPHOCYTES PERCENT AUTO 18 % (21-46); MONOCYTES ABSOLUTE AUTO 0.89 K/mm3 (0.16-1.47); MONOCYTES PERCENT AUTO 12 % (4-13); Mean Corpuscular HGB 27.6 pg (26.0-34.0); Mean Corpuscular HGB Conc 33.1 g/dL (31.5-36.5); Mean Corpuscular Volume 83 fL (80-100); Mean Platelet Volume 10.8 fL (9.1-12.4); NEUTROPHILS ABSOLUTE AUTO 4.61 K/mm3 (1.96-9.15); NEUTROPHILS PERCENT AUTO 64 % (41-73); Platelet Count 295 K/mm3 (150-400); RDW Coefficient Variation 13.8 % (11.7-14.2); RDW Standard Deviation 42.6 fL (35.1-46.3); Red Blood Cell Count 3.84 M/mm3 (4.30-5.90)
[2022-09-25 05:25] LABS: Bun/Creatinine Ratio 32.8 (12.0-20.0); Calcium, Blood 8.1 mg/dL (8.5-10.1); Creatinine, Blood 0.61 mg/dL (0.60-1.20); Magnesium, Blood 2.3 mg/dL (1.6-2.4); Potassium, Blood 3.4 mmol/L (3.5-5.5)
--- NOTE | 2022-09-25 19:04 | NUR ---
PT IS A/OX4, PLEASANT AND COOPERATIVE. THE PT IS UP WITH ASSIST. THE PT HAS HAD BM'S TODAY LOOSE WATRY WITH SOME SOLIDS. PT WAS UP AMBULATING WITH THE PERSONAL INVESTMENT ADVISER AND THE PHYSICAL THERAPIST TODAY OUT INTO THE RIOS AND THE PT WAS UP IN THE CHAIR FOR SEVERAL HOURS. THE PT TOOK SOME SMALL AMOUNTS OF FULL LIQUID DIET AND TOLERATED IT WELL. CALL LIGHT IN REACH. REPORT GIVEN TO NOC NURSE
--- NOTE | 2022-09-25 21:51 | NUR ---
WAS ASSISTED TO BATHROOM AT HS FROM RECLINER, INCONT OF LOOSE BROWN STOOL. CHANGED. ASSISTED TO BED. ALERT AND ORIENTED. TPN INFUSING AT 96 ML/HR. HOB ELEVATED. DENIES PAIN AND LOSS OF FEELING. CALL LIGHT IN REACH. WILL CONTINUE TO MONITOR
--- NOTE | 2022-09-26 03:45 | NUR ---
BASE BRANDER SUMMARY WAS ASSISTED TO BATHROOM AT SHIFT COMMENCE AND HAD LARGE LOOSE STOOL. CLEANED UP AND THEN ASSISTED TO BED. TPN INFUSING AT 94 ML/HR. TOLERATING FLUIDS. REPOSITIONED UP IN BED A FEW TIMES. ALERT TO QUESTIONS ASKED. OTHER THAN ELEVATED DIASTOLIC, VSS. NO NOTED ACUTE DISTRESS OTHERWISE. CALL LIGHT IN REACH. RAILS UP X 2. CURRENTLY RESTING QUIETLY. WILL CONTINUE TO MONITOR
--- NOTE | 2022-09-26 18:12 | NUR ---
SHIFT SUMMARY PT HAS BEEN COOPERATIVE AND FOLLOWING DIRECTIONS ALL DAY. HE HAS WALKED DOWN THE RIOS TWICE. HE HAS ALSO BEEN SLEEPING OFF AND ON ALL DAY. HIS LAST BAG OF TPN WAS GIVEN THIS SHIFT AND THE PROVIDER SWITCHED HIM TO A REGULAR, LOW FIBER DIET. A MEPALEX WAS PLACED ON HIS COCCYX THIS SHIFT, NEW PICTURES OF THE AREA WERE ALSO PLACED IN THE CHART. HE IS SCHEDULED TO BE DISCHARGED TOMORROW TO OBTAIN REHABILITATION.
[2022-09-27 12:48] LABS: SARS-Cov-2 (COVID-19) PCR, MMC NEGATIVE (NEGATIVE)
--- NOTE | 2022-09-27 15:27 | NUR ---
DISCHARGE REPORT CALLED TO DEB LEMON AT [facility], QUESTIONS ANSWERED
[2022-09-28] MEDS ORDERED: ENOX40I SC (10:56)
[2022-09-28] MEDS ORDERED: DULCOLAX400 MG/5 M PO (10:56)
[2022-09-28] MEDS ORDERED: HYDR1TAB94 PO (10:57)
[2022-09-28] MEDS ORDERED: MELATONIN5 M1 PO (10:58)
[2022-09-28] MEDS ORDERED: ONDA4ODT MM (10:59)
[2022-09-28] MEDS ORDERED: LIDOCAINE1 EAC1 TOP (11:00)
[2022-09-28] MEDS ORDERED: HUMULIN R100 UNIT/2 SC (11:01)
[2022-09-28] MEDS ORDERED: INSULIN GL100 UNIT/2 SC (11:02)
== END 2022-09-27 15:51 | DRG 335 ==
LOC: ER 23:51 → MEDS 23:52 → SURS 23:52 → MEDS 09-23 14:58
PROVIDERS: Emergency Medicine; Internal Medicine; Surgery; ADMIT Internal Medicine
PROC: 0DNU0ZZ Release Omentum, Open Approach (ICD-10-PCS; 2022-09-08)
PROC: 0DNN0ZZ Release Sigmoid Colon, Open Approach (ICD-10-PCS; 2022-09-08)
PROC: 0DJU4ZZ Inspection of Omentum, Percutaneous Endoscopic Approach (ICD-10-PCS; principal; 2022-09-08 11:30)
PROC: 0DN80ZZ Release Small Intestine, Open Approach (ICD-10-PCS; 2022-09-08 11:30)
PROC: 0DJD4ZZ Inspection of Lower Intestinal Tract, Percutaneous Endoscopic Approach (ICD-10-PCS; 2022-09-08 11:30)
PROC: 0DH67UZ Insertion of Feeding Device into Stomach, Via Natural or Artificial Opening (ICD-10-PCS; 2022-09-16)
PROC: 02HV33Z Insertion of Infusion Device into Superior Vena Cava, Percutaneous Approach (ICD-10-PCS; 2022-09-17)
DX: K56.50 Intestinal adhesions [bands], unspecified as to partial versus complete obstruction (principal); G92.9 Unspecified toxic encephalopathy; K91.89 Other postprocedural complications and disorders of digestive system; R44.3 Hallucinations, unspecified; K56.7 Ileus, unspecified; G20 Parkinson's disease; Z66 Do not resuscitate; E11.9 Type 2 diabetes mellitus without complications; K59.00 Constipation, unspecified; I35.0 Nonrheumatic aortic (valve) stenosis; R35.0 Frequency of micturition; Z20.822 Contact with and (suspected) exposure to COVID-19; D72.829 Elevated white blood cell count, unspecified; Z79.899 Other long term (current) drug therapy; Z79.02 Long term (current) use of antithrombotics/antiplatelets; Z85.038 Personal history of other malignant neoplasm of large intestine; Z90.49 Acquired absence of other specified parts of digestive tract; Z98.890 Other specified postprocedural states; Z95.2 Presence of prosthetic heart valve; Z79.4 Long term (current) use of insulin
CPT/HCPCS: 36415; 71045; 71260; 74018; 74177; 74250; 80048; 80053; 80069; 81003; 82947; 83690; 83735; 84100; 84478; 85025; 93005; 93010; 94664; 94760; 96374-59; 96375-59; 96376-59; 97110; 97112; 97116; 97162; 97166; 97530; 97535; 99285-25; A9270; C9113; J0610; J0694; J1100; J1170; J1650; J1815; J1885; J2270; J2370; J2405; J2550; J2704; J2795; J3010; J3475; J3480; J7030; J7042; J7060; J7120; J7131; Q9967; U0004

== ENCOUNTER 2023-03-05 12:12 | Emergency (ER) | payer MEDICARE ==
[~2023-03-05] VITALS: Ht 182.9 cm; Wt 63.5 kg
[~2023-03-05 12:12] MED LIST changes: +ACET325 PO; +ALUM-MAG HYDRO360 M1 PO; +DULCOLAX400 MG/5 M PO; +ENOX40I SC; +HUMULIN R100 UNIT/2 SC; +HYDR1TAB94 PO; +INSULIN GL100 UNIT/2 SC; +LIDOCAINE1 EAC1 TOP; +LOPE2C PO; +MELATONIN5 M1 PO; +NITR.4SL SL; +ONDA4ODT MM; +PANT40 PO; +PRESERVISION A1 EAC1 PO; +SENN187 PO; +TAMS.4ER PO
[2023-03-05] MEDS ORDERED: AMAN100 PO (12:35)
[2023-03-05] MEDS ORDERED: ASPI81CH PO (12:38)
[2023-03-05] MEDS ORDERED: SELEGILINE HCL (12:38)
[2023-03-05 13:13] LABS: BASOPHILS ABSOLUTE AUTO 0.04 K/mm3 (0.00-0.23); BASOPHILS PERCENT AUTO 1 % (0-2); EOSINOPHILS ABSOLUTE AUTO 0.07 K/mm3 (0.00-0.68); EOSINOPHILS PERCENT AUTO 1 % (0-6); Hematocrit 38.3 % (37.0-53.0); Hemoglobin 12.1 g/dL (13.5-17.5); IMMATURE GRAN ABSOLUTE AUTO 0.02 K/mm3 (0.00-0.10); IMMATURE GRAN PERCENT AUTO 0 % (0-1); LYMPHOCYTES PERCENT AUTO 27 % (21-46); MONOCYTES ABSOLUTE AUTO 0.75 K/mm3 (0.16-1.47); MONOCYTES PERCENT AUTO 11 % (4-13); Mean Corpuscular HGB Conc 31.6 g/dL (31.5-36.5); Mean Corpuscular Volume 76 fL (80-100); Mean Platelet Volume 10.7 fL (9.1-12.4); NEUTROPHILS ABSOLUTE AUTO 4.37 K/mm3 (1.96-9.15); NEUTROPHILS PERCENT AUTO 61 % (41-73); Platelet Count 232 K/mm3 (150-400); RDW Coefficient Variation 18.3 % (11.7-14.2); RDW Standard Deviation 49.6 fL (35.1-46.3); Red Blood Cell Count 5.05 M/mm3 (4.30-5.90); White Blood Cell Count 7.15 K/mm3 (4.00-11.30)
[2023-03-05 13:32] LABS: Albumin, Blood 3.7 g/dL (3.4-5.0); Bilirubin, Total 0.5 mg/dL (0.1-1.0); Bun/Creatinine Ratio 27.8 (12.0-20.0); Calcium, Blood 9.2 mg/dL (8.5-10.1); Creatinine, Blood 0.65 mg/dL (0.60-1.20); Globulin, Blood 3.8 g/dL (2.2-4.0); Potassium, Blood 3.9 mmol/L (3.5-5.5); Total Protein, Blood 7.5 g/dL (6.4-8.2)
[2023-03-05 14:00] VITALS: BP 146/74
== END 2023-03-05 14:10 | disposition home or self-care (01) ==
LOC: ER 12:12
PROVIDERS: Emergency Medicine
DX: E86.0 Dehydration (principal); G20 Parkinson's disease; R53.1 Weakness; E11.9 Type 2 diabetes mellitus without complications; Z79.899 Other long term (current) drug therapy; Z79.82 Long term (current) use of aspirin
CPT/HCPCS: 80053; 85025; 93005; 93010; 96360; 99284-25

== ENCOUNTER → 2023-04-07 | Outpatient (CLI) | payer MEDICARE ==
[~2023-04-07] MED LIST changes: +AMAN100 PO; +ASPI81CH PO
[2023-04-07 16:03] LABS: Microalb/Creat Ratio UR, Rand 64.364 mg/g (0.000-30.000); Microalbumin, Random Urine 70.8 mg/L (0.000-20.000)
== END | disposition home or self-care (01) ==
LOC: LAB 13:00 → LAB SHORT 13:00
PROVIDERS: Physician Assistant
DX: E11.69 Type 2 diabetes mellitus with other specified complication (principal)
CPT/HCPCS: 82043; 82570

== ENCOUNTER 2023-10-01 12:42 | Emergency (ER) | payer MEDICARE ==
[~2023-10-01] VITALS: Ht 182.9 cm; Wt 64.0 kg
[2023-10-01 13:30] LABS: BASOPHILS ABSOLUTE AUTO 0.05 K/mm3 (0.00-0.23); BASOPHILS PERCENT AUTO 1 % (0-2); EOSINOPHILS ABSOLUTE AUTO 0.05 K/mm3 (0.00-0.68); EOSINOPHILS PERCENT AUTO 1 % (0-6); Hemoglobin 14.7 g/dL (13.5-17.5); IMMATURE GRAN ABSOLUTE AUTO 0.16 K/mm3 (0.00-0.10); IMMATURE GRAN PERCENT AUTO 2 % (0-1); LYMPHOCYTES ABSOLUTE AUTO 2.51 K/mm3 (0.84-5.20); LYMPHOCYTES PERCENT AUTO 24 % (21-46); MONOCYTES ABSOLUTE AUTO 0.82 K/mm3 (0.16-1.47); MONOCYTES PERCENT AUTO 8 % (4-13); Mean Corpuscular HGB 26.7 pg (26.0-34.0); Mean Corpuscular HGB Conc 33.4 g/dL (31.5-36.5); Mean Corpuscular Volume 80 fL (80-100); Mean Platelet Volume 10.3 fL (9.1-12.4); NEUTROPHILS ABSOLUTE AUTO 6.68 K/mm3 (1.96-9.15); NEUTROPHILS PERCENT AUTO 65 % (41-73); Platelet Count 226 K/mm3 (150-400); RDW Coefficient Variation 18.4 % (11.7-14.2); RDW Standard Deviation 50.9 fL (35.1-46.3); Red Blood Cell Count 5.51 M/mm3 (4.30-5.90); White Blood Cell Count 10.27 K/mm3 (4.00-11.30)
[2023-10-01 14:52] LABS: Albumin, Blood 3.2 g/dL (3.4-5.0); Albumin/Globulin Ratio 0.9 (0.8-1.8); Bilirubin, Total 0.3 mg/dL (0.1-1.0); Bun/Creatinine Ratio 39.1 (12.0-20.0); Calcium, Blood 8.9 mg/dL (8.5-10.1); Creatinine, Blood 0.77 mg/dL (0.60-1.20); Globulin, Blood 3.7 g/dL (2.2-4.0); Potassium, Blood 4.4 mmol/L (3.5-5.5); Total Protein, Blood 6.9 g/dL (6.4-8.2)
[2023-10-01] MEDS ORDERED: MECL25 PO (15:57)
[2023-10-01 16:00] VITALS: BP 134/80
== END 2023-10-01 16:14 | disposition home or self-care (01) ==
LOC: ER 12:42
PROVIDERS: Emergency Medicine
DX: R42 Dizziness and giddiness (principal); G20.A1 Parkinson's disease without dyskinesia, without mention of fluctuations; E11.9 Type 2 diabetes mellitus without complications; Z95.2 Presence of prosthetic heart valve; Z79.82 Long term (current) use of aspirin; Z79.899 Other long term (current) drug therapy
CPT/HCPCS: 71045; 80053; 84484; 85025; 93005; 93010; 96360; 99285-25; J7030

== ENCOUNTER 2023-10-24 11:06 | Emergency (ER) | payer MEDICARE ==
[~2023-10-24] VITALS: Ht 182.9 cm; Wt 63.5 kg
[~2023-10-24 11:06] MED LIST changes: +MECL25 PO
[2023-10-24 11:23] LABS: BASOPHILS ABSOLUTE AUTO 0.04 K/mm3 (0.00-0.23); BASOPHILS PERCENT AUTO 1 % (0-2); EOSINOPHILS ABSOLUTE AUTO 0.04 K/mm3 (0.00-0.68); EOSINOPHILS PERCENT AUTO 1 % (0-6); Hematocrit 43.5 % (37.0-53.0); Hemoglobin 14.3 g/dL (13.5-17.5); IMMATURE GRAN ABSOLUTE AUTO 0.27 K/mm3 (0.00-0.10); IMMATURE GRAN PERCENT AUTO 3 % (0-1); LYMPHOCYTES ABSOLUTE AUTO 1.51 K/mm3 (0.84-5.20); LYMPHOCYTES PERCENT AUTO 19 % (21-46); MONOCYTES ABSOLUTE AUTO 0.81 K/mm3 (0.16-1.47); MONOCYTES PERCENT AUTO 10 % (4-13); Mean Corpuscular HGB 27.2 pg (26.0-34.0); Mean Corpuscular HGB Conc 32.9 g/dL (31.5-36.5); Mean Corpuscular Volume 83 fL (80-100); Mean Platelet Volume 9.7 fL (9.1-12.4); NEUTROPHILS PERCENT AUTO 67 % (41-73); Platelet Count 191 K/mm3 (150-400); RDW Coefficient Variation 18.2 % (11.7-14.2); RDW Standard Deviation 53.7 fL (35.1-46.3); Red Blood Cell Count 5.25 M/mm3 (4.30-5.90); White Blood Cell Count 8.07 K/mm3 (4.00-11.30)
[2023-10-24 11:43] LABS: Albumin, Blood 3.4 g/dL (3.4-5.0); Albumin/Globulin Ratio 0.8 (0.8-1.8); Bilirubin, Total 0.4 mg/dL (0.1-1.0); Bun/Creatinine Ratio 33.2 (12.0-20.0); Calcium, Blood 9.2 mg/dL (8.5-10.1); Creatinine, Blood 0.78 mg/dL (0.60-1.20); Globulin, Blood 4.3 g/dL (2.2-4.0); Potassium, Blood 4.1 mmol/L (3.5-5.5); Total Protein, Blood 7.7 g/dL (6.4-8.2)
[2023-10-24 13:55] LABS: Source, Urine Clean Catch
[2023-10-24 14:05] LABS: Appearance, Urine Clear (Clear); Bilirubin, Urine Neg (Neg); Blood, Urine Neg (Neg); Color, Urine Yellow (P-Yellow); Glucose Qualitative, Urine Neg (Neg); Ketones, Urine Neg (Neg); Leukocyte Esterase, Urine Neg (Neg); Nitrite, Urine Neg (Neg); Protein, Urine 2+ (Neg); Specific Gravity, Urine 1.015 (1.003-1.022); Urobilinogen, Urine NORM (Normal)
[2023-10-24 14:33] LABS: Bacteria Rare /hpf; Red Blood Cells, Urine 0-2 /hpf (0-2); Squamous Epithelial Cells Few /hpf (Few); White Blood Cells, Urine 0-2 /hpf (0-5)
[2023-10-24 14:34] LABS: Hyaline Casts 0-2 /lpf (0-2); Mucus Light (0-Heavy)
[2023-10-24 15:00] VITALS: BP 136/91
== END 2023-10-24 16:31 | disposition home or self-care (01) ==
LOC: ER 11:06
PROVIDERS: Emergency Medicine; Physician Assistant
DX: E86.0 Dehydration (principal); E11.9 Type 2 diabetes mellitus without complications; G20.A1 Parkinson's disease without dyskinesia, without mention of fluctuations; Z79.899 Other long term (current) drug therapy; Z79.82 Long term (current) use of aspirin; I25.10 Atherosclerotic heart disease of native coronary artery without angina pectoris; I35.0 Nonrheumatic aortic (valve) stenosis; I34.0 Nonrheumatic mitral (valve) insufficiency
CPT/HCPCS: 71046; 80053; 81001; 83735; 85025; 93005; 93010; 96361; 96374; 99284-25; C8929; J7030; Q9957

== ENCOUNTER 2024-01-14 13:45 | Emergency (ER) | payer OTHER, MEDICARE ==
[~2024-01-14] VITALS: Ht 182.9 cm; Wt 64.4 kg
[2024-01-14 14:46] VITALS: BP 128/77
== END 2024-01-14 15:30 | disposition home or self-care (01) ==
LOC: ER 13:45
DX: Z04.3 Encounter for examination and observation following other accident (principal); E11.9 Type 2 diabetes mellitus without complications; I10 Essential (primary) hypertension; G20.A1 Parkinson's disease without dyskinesia, without mention of fluctuations; Z79.899 Other long term (current) drug therapy; Z79.82 Long term (current) use of aspirin; Z79.84 Long term (current) use of oral hypoglycemic drugs; Z95.1 Presence of aortocoronary bypass graft
CPT/HCPCS: 99283